=== PATIENT | female | born 1965 | race Caucasian/White ===

== ENCOUNTER 2022-12-24 16:44 | Inpatient (IN) | payer OTHER, SELFPAY ==
--- NOTE | ~2022-12-24 | XR_ITS ---
EXAMINATION: XR CHEST CLINICAL INFORMATION: Chronic shortness of breath. COMPARISON: None available. TECHNIQUE: 2 views of the chest were obtained. FINDINGS: No significant abnormality is noted involving the heart, lungs, mediastinum, bony thorax or soft tissues. XR/XR chest 2V IMPRESSION: No acute cardiopulmonary process.
--- NOTE | 2022-12-24 16:50 | ED_ITS ---
HPI - Psych General Chief Complaint: Psychiatric Symptoms <KAITLIN Escobedo Last Filed: 12/24/22 19:58> Stated Complaint: SI W/PLAN,SECTION 12 <KAITLIN Escobedo Last Filed: 12/24/22 19:58> Time Seen by Provider: 12/24/22 17:05 <KAITLIN Escobedo Last Filed: 12/24/22 19:58> Source: patient <KAITLIN Escobedo Last Filed: 12/24/22 19:58> Mode of arrival: ambulatory <KAITLIN Escobedo Last Filed: 12/24/22 19:58> Limitations: no limitations <KAITLIN Escobdeo Last Filed: 12/24/22 19:58> History of Present Illness HPI Narrative: This is a 57-year-old female history of anxiety, depression presenting to the emergency department for evaluation of suicidal ideation with plan times a few days. Patient reports she wanted to go to for spark underneath because the bow, drink a lot of alcohol and pills and , she says last time she tried to kill herself at home she had to get CPR from her sister so she did not want this to happen. Recently released from an inpatient psychiatric unit in mid October. Denies visual, auditory and tactile hallucinations. Denies drugs, alcohol and tobacco. No medical complain. Med compliant per patient. <KAITLIN Escobedo Last Filed: 12/24/22 19:58> Related Data Home Medications: Home Medications Medication Instructions Recorded Confirmed amlodipine 5 mg tablet 5 mg PO DAILY 12/24/22 12/24/22 clonazepam 1 mg tablet 1 mg PO TID PRN Anxiety 12/24/22 12/24/22 clonidine HCl 0.1 mg tablet 0.1 mg PO TID 12/24/22 12/24/22 fluoxetine 20 mg capsule 20 mg PO DAILY 12/24/22 12/24/22 prazosin 5 mg capsule 5 mg PO BEDTIME 12/24/22 12/24/22 quetiapine 400 mg tablet 400 mg PO BEDTIME 12/24/22 12/24/22 <KAITLIN Escobedo Last Filed: 12/24/22 19:58> Allergies/Adverse Reactions: Allergies Allergy/AdvReac Type Severity Reaction Status Date / Time No Known Allergies Allergy Verified 12/24/22 23:16 <KAITLIN Escobedo Last Filed: 12/24/22 19:58> Review of Systems Review of Systems: Constitutional : No Fever, No Chills ENT/Mouth : No Ear Pain, No Nasal Congestion, No sore throat Eyes: No Eye Pain, No Swelling, No Redness Cardiovascular : No Chest Pain, No SOB Respiratory : No Cough, No Sputum, No Dyspnea Gastrointestinal : No Nausea, No Vomiting, No Diarrhea, No Hematochezia, No Melena Genitourinary : No Dysuria, No Urinary Frequency, No Hematuria Musculoskeletal : No Myalgias Skin : No Skin Lesions, No rash Neuro : No Weakness, No Numbness, No Paresthesias, No Dizziness, No Headache Psych : positive Anxiety, positive Depression, positive SI, No HI All other systems reviewed and are negative <KAITLIN Escobedo Last Filed: 12/24/22 19:58> Yes all other systems are reviewed and are negative <KAITLIN Escobeod Last Filed: 12/24/22 19:58> PMF Past Medical History Attestation statement: The following information was validated with the patient. <KAITLIN Escobedo Last Filed: 12/24/22 19:58> Source: old records reviewed and nursing notes reviewed <KAITLIN Escobedo Last Filed: 12/24/22 19:58> Social History Social History: Social History Alcohol intake: former Smoked in Last 30 Days: Yes Use of substances other than those prescribed or required for medical reasons: No Advance Directives: No Advance Directives Information Provided: No Patient : No <KAITLIN Escobedo Last Filed: 12/24/22 19:58> Physical Exam Vital Signs: Vital Signs: Last Vital Signs Temp 97.9 F 12/25/22 00:18 Pulse 62 12/25/22 00:18 Resp 16 12/25/22 00:18 BP 177/74 H 12/25/22 00:18 Pulse Ox 92 12/25/22 00:18 O2 Del Method Room Air 12/25/22 00:18 BMI result Body Mass Index 33.4 vss <KAITLIN Escobedo - Last Filed: 12/24/22 19:58> Vital Signs: Last Vital Signs Temp 97.9 F 12/25/22 00:18 Pulse 62 12/25/22 00:18 Resp 16 12/25/22 00:18 BP 177/74 H 12/25/22 00:18 Pulse Ox 92 12/25/22 00:18 O2 Del Method Room Air 12/25/22 00:18 BMI result Body Mass Index 33.4 <Elias Pierson MD - Last Filed: 12/25/22 08:14> Appearance: Alert.? Oriented X3.? No acute distress.? Head: Normocephalic, atraumatic, no step-offs or deformities Eyes: Pupils equal, round and reactive to light.? Neck: Normal inspection.? Neck supple.? CVS: Normal heart rate and rhythm.? Pulses normal.? Respiratory: No respiratory distress.? Breath sounds normal.? Abdomen: Soft and nontender.? Skin: Skin warm and dry.? Normal skin color.? Normal skin turgor.? Extremities: No lower extremity edema.? No calf ttp. 5/5 strength to bilateral upper and lower extremities Neuro: Oriented X 3.? No motor deficit.? No sensory deficit. CN 2-12 intact <KAITLIN Escobedo - Last Filed: 12/24/22 19:58> Course Reevaluation(s) Reevaluation #1: CBC within normal limits. Chemistry with slightly elevated BUN however patient tolerating p.o. nose clinical signs of dehydration. No other acute electrolyte abnormalities requiring intervention. UA without infection. Salicylates, acetaminophen and ethanol negative. COVID negative. At this time patient will be placed into observation to allow more time to be evaluated by the behavioral health team. At time observation was started kaitlin holcomb cooperative no acute distress will continue to monitor. <KAITLIN Escobedo - Last Filed: 12/24/22 19:58> Time: 18:46 <KAITLIN Escobedo - Last Filed: 12/24/22 19:58> Reevaluation #2: pt is stble ,no event overnight on section 12 bed search continue <Elias Pierson MD - Last Filed: 12/25/22 08:14> Time: 08:12 <Elias Pierson MD - Last Filed: 12/25/22 08:14> Medications Administered Generic Name Dose Route Start Last Admin Trade Name Freq PRN Reason Stop Dose Admin Clonazepam 1 mg 12/25/22 00:40 12/25/22 00:57 Clonazepam 1 Mg Tablet PO 1 mg TID PRN Administration Anxiety Clonidine HCl 0.1 mg 12/25/22 00:45 12/25/22 00:57 Clonidine Hcl 0.1 Mg Tablet PO 0.1 mg TID LILIAM Administration Protocol Prazosin HCl 5 mg 12/25/22 00:45 12/25/22 00:57 Prazosin Hcl 5 Mg Capsule PO 5 mg BEDTIME LILIAM Administration Protocol Quetiapine Fumarate 400 mg 12/25/22 00:45 12/25/22 00:57 Quetiapine Fumarate 400 Mg Tablet PO 400 mg BEDTIME LILIAM Administration <KAITLIN Escobedo - Last Filed: 12/24/22 19:58> Medications Administered Generic Name Dose Route Start Last Admin Trade Name Freq PRN Reason Stop Dose Admin Clonazepam 1 mg 12/25/22 00:40 12/25/22 00:57 Clonazepam 1 Mg Tablet PO 1 mg TID PRN Administration Anxiety Clonidine HCl 0.1 mg 12/25/22 00:45 12/25/22 00:57 Clonidine Hcl 0.1 Mg Tablet PO 0.1 mg TID LILIAM Administration Protocol Prazosin HCl 5 mg 12/25/22 00:45 12/25/22 00:57 Prazosin Hcl 5 Mg Capsule PO 5 mg BEDTIME LILIAM Administration Protocol Quetiapine Fumarate 400 mg 12/25/22 00:45 12/25/22 00:57 Quetiapine Fumarate 400 Mg Tablet PO 400 mg BEDTIME LILIAM Administration <Elias Pierson MD - Last Filed: 12/25/22 08:14> Medical Decision Making Medical Decision Making MDM Narrative: 1654 57 year old female presents with suicidal ideation with plan for few days. Physical exam benign Likely anxiety, depression. Other differentials include schizophrenia, bipolar disorder. Plan medical clearance evaluation by the behavioral health team. <KAITLIN Escobedo Last Filed: 12/24/22 19:58> Differential Diagnosis Differential Diagnoses: The differential diagnosis associated with the presentation includes <KAITLIN Escobedo - Last Filed: 12/24/22 19:58> Likely anxiety, depression. Other differentials include schizophrenia, bipolar disorder. <KAITLIN Escobedo - Last Filed: 12/24/22 19:58> Admission/Observation Consideration of admission/observation: Escalation of care including admission/observation considered <KAITLIN Escobedo - Last Filed: 12/24/22 19:58> Lab Data MDM Lab Attestation statement: I reviewed the patient's lab results. <KAITLIN Escobedo - Last Filed: 12/24/22 19:58> Result Diagrams: 12/24/22 17:46 12/24/22 17:46 <KAITLIN Escobedo - Last Filed: 12/24/22 19:58> Labs: Lab Results 12/24/22 12/24/22 12/24/22 Range/Units 17:46 17:46 17:46 WBC 8.9 (4.8-10.8) X10*3/uL RBC 4.78 (4.20-5.50) X10*6/uL Hgb 13.2 (12.0-16.0) g/dl Hct 41.5 (37.0-47.0) % MCV 86.8 (80.0-98.0) fL MCH 27.6 (27.0-33.0) pg MCHC 31.8 (31.0-35.0) g/dl RDW 13.2 (11.0-16.0) % Plt Count 219 (160-400) X10*3/uL MPV 10.6 (9.4-12.3) fL Immature Gran % (Auto) 0.2 (0.0-0.4) % Neut % (Auto) 53.6 (45-73) % Lymph % (Auto) 39.4 (20-40) % [place] % (Auto) 5.0 (2-11) % Eos % (Auto) 1.5 (0-4) % Baso % (Auto) 0.3 (0-2) % Lymph # (Auto) 3.5 (1.2-4.9) X10*3/uL [place] # (Auto) 0.4 (0.1-1.2) X10*3/uL Eos # (Auto) 0.1 (0.0-0.4) X10*3/uL Baso # (Auto) 0.0 (0.0-0.2) X10*3/uL Abs Immat Gran (auto) 0.02 (0.00-0.03) X10*3/uL Absolute Neuts (auto) 4.8 (2.0-8.3) x10*3/uL Absolute Nucleated RBC 0.000 (0.0-0.012) X10*3/uL Nucleated RBC % (auto) 0.0 (0.0-0.2) /100WBC Sodium 140 (135-145) mmol/L Potassium 4.3 (3.3-5.1) mmol/L Chloride 101 (96-108) mmol/L Carbon Dioxide 32 H (22-29) mmol/L Anion Gap 11 L (12-20) BUN 18 H (9-16) mg/dL Creatinine 0.94 (0.5-1.4) mg/dL Estim Creat Clear Calc 79.6 Estimated GFR > 60 Random Glucose 96 (60-115) mg/dL Calcium 9.1 (8.4-10.2) mg/dL Magnesium 2.1 (1.6-2.6) mg/dL Total Bilirubin 0.3 (0.0-1.0) mg/dL AST 20 (5-31) U/L ALT 21 (0-31) U/L Alkaline Phosphatase 80 (39-117) U/L Total Protein 6.8 (6.5-8.0) g/dL Albumin 4.0 (3.5-5.0) g/dL Lipase 11 (8-78) U/L Urine Color Urine Appearance Urine pH (5.0-9.0) Ur Specific [place] (1.005-1.025) Urine Protein (Neg-Trace) mg/dL Urine Glucose (UA) (Negative) mg/dL Urine Ketones (Negative) mg/dL Urine Blood (Negative) Urine Nitrite (Negative) Ur Leukocyte Esterase (Negative) Urine RBC (0-2) /HPF Urine WBC (0-5) /HPF Ur Squamous Epith Cells (0-2) /HPF Urine Bacteria (None Seen) Hyaline Casts (0-2) /LPF Salicylates < 5.0 L (15-30) mg/dL Urine Opiates Screen (Not Detect) Urine Fentanyl Screen (Not Detect) Acetaminophen < 17 (<30) mcg/mL Ur Barbiturates Screen (Not Detect) Ur Phencyclidine Scrn (Not Detect) Ur Amphetamines Screen (Not Detect) U Benzodiazepines Scrn (Not Detect) Urine Cocaine Screen (Not Detect) U Marijuana (THC) Screen (Not Detect) Ethyl Alcohol < 10 mg/dL COVID-19 ([facility]) Negative (Negative) COVID-19 Clin Com See Note 12/24/22 12/24/22 Range/Units 17:46 17:46 WBC (4.8-10.8) X10*3/uL RBC (4.20-5.50) X10*6/uL Hgb (12.0-16.0) g/dl Hct (37.0-47.0) % MCV (80.0-98.0) fL MCH (27.0-33.0) pg MCHC (31.0-35.0) g/dl RDW (11.0-16.0) % Plt Count (160-400) X10*3/uL MPV (9.4-12.3) fL Immature Gran % (Auto) (0.0-0.4) % Neut % (Auto) (45-73) % Lymph % (Auto) (20-40) % [place] % (Auto) (2-11) % Eos % (Auto) (0-4) % Baso % (Auto) (0-2) % Lymph # (Auto) (1.2-4.9) X10*3/uL [place] # (Auto) (0.1-1.2) X10*3/uL Eos # (Auto) (0.0-0.4) X10*3/uL Baso # (Auto) (0.0-0.2) X10*3/uL Abs Immat Gran (auto) (0.00-0.03) X10*3/uL Absolute Neuts (auto) (2.0-8.3) x10*3/uL Absolute Nucleated RBC (0.0-0.012) X10*3/uL Nucleated RBC % (auto) (0.0-0.2) /100WBC Sodium (135-145) mmol/L Potassium (3.3-5.1) mmol/L Chloride (96-108) mmol/L Carbon Dioxide (22-29) mmol/L Anion Gap (12-20) BUN (9-16) mg/dL Creatinine (0.5-1.4) mg/dL Estim Creat Clear Calc Estimated GFR Random Glucose (60-115) mg/dL Calcium (8.4-10.2) mg/dL Magnesium (1.6-2.6) mg/dL Total Bilirubin (0.0-1.0) mg/dL AST (5-31) U/L ALT (0-31) U/L Alkaline Phosphatase (39-117) U/L Total Protein (6.5-8.0) g/dL Albumin (3.5-5.0) g/dL Lipase (8-78) U/L Urine Color Dark Yellow Urine Appearance Clear Urine pH 6.0 (5.0-9.0) Ur Specific [place] 1.025 (1.005-1.025) Urine Protein Trace (Neg-Trace) mg/dL Urine Glucose (UA) Negative (Negative) mg/dL Urine Ketones Trace (Negative) mg/dL Urine Blood Negative (Negative) Urine Nitrite Negative (Negative) Ur Leukocyte Esterase Small (1+) H (Negative) Urine RBC 0-2 (0-2) /HPF Urine WBC 11-20 H (0-5) /HPF Ur Squamous Epith Cells 3-5 (0-2) /HPF Urine Bacteria None Seen (None Seen) Hyaline Casts 0-2 (0-2) /LPF Salicylates (15-30) mg/dL Urine Opiates Screen Not Detected (Not Detect) Urine Fentanyl Screen Not Detected (Not Detect) Acetaminophen (<30) mcg/mL Ur Barbiturates Screen Not Detected (Not Detect) Ur Phencyclidine Scrn Not Detected (Not Detect) Ur Amphetamines Screen Not Detected (Not Detect) U Benzodiazepines Scrn POSITIVE H (Not Detect) Urine Cocaine Screen Not Detected (Not Detect) U Marijuana (THC) Screen Not Detected (Not Detect) Ethyl Alcohol mg/dL COVID-19 ([facility]) (Negative) COVID-19 Clin Com <KAITLIN Escobedo - Last Filed: 12/24/22 19:58> Lab Results 12/24/22 12/24/22 12/24/22 Range/Units 17:46 17:46 17:46 WBC 8.9 (4.8-10.8) X10*3/uL RBC 4.78 (4.20-5.50) X10*6/uL Hgb 13.2 (12.0-16.0) g/dl Hct 41.5 (37.0-47.0) % MCV 86.8 (80.0-98.0) fL MCH 27.6 (27.0-33.0) pg MCHC 31.8 (31.0-35.0) g/dl RDW 13.2 (11.0-16.0) % Plt Count 219 (160-400) X10*3/uL MPV 10.6 (9.4-12.3) fL Immature Gran % (Auto) 0.2 (0.0-0.4) % Neut % (Auto) 53.6 (45-73) % Lymph % (Auto) 39.4 (20-40) % [place] % (Auto) 5.0 (2-11) % Eos % (Auto) 1.5 (0-4) % Baso % (Auto) 0.3 (0-2) % Lymph # (Auto) 3.5 (1.2-4.9) X10*3/uL [place] # (Auto) 0.4 (0.1-1.2) X10*3/uL Eos # (Auto) 0.1 (0.0-0.4) X10*3/uL Baso # (Auto) 0.0 (0.0-0.2) X10*3/uL Abs Immat Gran (auto) 0.02 (0.00-0.03) X10*3/uL Absolute Neuts (auto) 4.8 (2.0-8.3) x10*3/uL Absolute Nucleated RBC 0.000 (0.0-0.012) X10*3/uL Nucleated RBC % (auto) 0.0 (0.0-0.2) /100WBC Sodium 140 (135-145) mmol/L Potassium 4.3 (3.3-5.1) mmol/L Chloride 101 (96-108) mmol/L Carbon Dioxide 32 H (22-29) mmol/L Anion Gap 11 L (12-20) BUN 18 H (9-16) mg/dL Creatinine 0.94 (0.5-1.4) mg/dL Estim Creat Clear Calc 79.6 Estimated GFR > 60 Random Glucose 96 (60-115) mg/dL Calcium 9.1 (8.4-10.2) mg/dL Magnesium 2.1 (1.6-2.6) mg/dL Total Bilirubin 0.3 (0.0-1.0) mg/dL AST 20 (5-31) U/L ALT 21 (0-31) U/L Alkaline Phosphatase 80 (39-117) U/L Total Protein 6.8 (6.5-8.0) g/dL Albumin 4.0 (3.5-5.0) g/dL Lipase 11 (8-78) U/L Urine Color Urine Appearance Urine pH (5.0-9.0) Ur Specific [place] (1.005-1.025) Urine Protein (Neg-Trace) mg/dL Urine Glucose (UA) (Negative) mg/dL Urine Ketones (Negative) mg/dL Urine Blood (Negative) Urine Nitrite (Negative) Ur Leukocyte Esterase (Negative) Urine RBC (0-2) /HPF Urine WBC (0-5) /HPF Ur Squamous Epith Cells (0-2) /HPF Urine Bacteria (None Seen) Hyaline Casts (0-2) /LPF Salicylates < 5.0 L (15-30) mg/dL Urine Opiates Screen (Not Detect) Urine Fentanyl Screen (Not Detect) Acetaminophen < 17 (<30) mcg/mL Ur Barbiturates Screen (Not Detect) Ur Phencyclidine Scrn (Not Detect) Ur Amphetamines Screen (Not Detect) U Benzodiazepines Scrn (Not Detect) Urine Cocaine Screen (Not Detect) U Marijuana (THC) Screen (Not Detect) Ethyl Alcohol < 10 mg/dL COVID-19 ([facility]) Negative (Negative) COVID-19 Clin Com See Note 12/24/22 12/24/22 Range/Units 17:46 17:46 WBC (4.8-10.8) X10*3/uL RBC (4.20-5.50) X10*6/uL Hgb (12.0-16.0) g/dl Hct (37.0-47.0) % MCV (80.0-98.0) fL MCH (27.0-33.0) pg MCHC (31.0-35.0) g/dl RDW (11.0-16.0) % Plt Count (160-400) X10*3/uL MPV (9.4-12.3) fL Immature Gran % (Auto) (0.0-0.4) % Neut % (Auto) (45-73) % Lymph % (Auto) (20-40) % [place] % (Auto) (2-11) % Eos % (Auto) (0-4) % Baso % (Auto) (0-2) % Lymph # (Auto) (1.2-4.9) X10*3/uL [place] # (Auto) (0.1-1.2) X10*3/uL Eos # (Auto) (0.0-0.4) X10*3/uL Baso # (Auto) (0.0-0.2) X10*3/uL Abs Immat Gran (auto) (0.00-0.03) X10*3/uL Absolute Neuts (auto) (2.0-8.3) x10*3/uL Absolute Nucleated RBC (0.0-0.012) X10*3/uL Nucleated RBC % (auto) (0.0-0.2) /100WBC Sodium (135-145) mmol/L Potassium (3.3-5.1) mmol/L Chloride (96-108) mmol/L Carbon Dioxide (22-29) mmol/L Anion Gap (12-20) BUN (9-16) mg/dL Creatinine (0.5-1.4) mg/dL Estim Creat Clear Calc Estimated GFR Random Glucose (60-115) mg/dL Calcium (8.4-10.2) mg/dL Magnesium (1.6-2.6) mg/dL Total Bilirubin (0.0-1.0) mg/dL AST (5-31) U/L ALT (0-31) U/L Alkaline Phosphatase (39-117) U/L Total Protein (6.5-8.0) g/dL Albumin (3.5-5.0) g/dL Lipase (8-78) U/L Urine Color Dark Yellow Urine Appearance Clear Urine pH 6.0 (5.0-9.0) Ur Specific [place] 1.025 (1.005-1.025) Urine Protein Trace (Neg-Trace) mg/dL Urine Glucose (UA) Negative (Negative) mg/dL Urine Ketones Trace (Negative) mg/dL Urine Blood Negative (Negative) Urine Nitrite Negative (Negative) Ur Leukocyte Esterase Small (1+) H (Negative) Urine RBC 0-2 (0-2) /HPF Urine WBC 11-20 H (0-5) /HPF Ur Squamous Epith Cells 3-5 (0-2) /HPF Urine Bacteria None Seen (None Seen) Hyaline Casts 0-2 (0-2) /LPF Salicylates (15-30) mg/dL Urine Opiates Screen Not Detected (Not Detect) Urine Fentanyl Screen Not Detected (Not Detect) Acetaminophen (<30) mcg/mL Ur Barbiturates Screen Not Detected (Not Detect) Ur Phencyclidine Scrn Not Detected (Not Detect) Ur Amphetamines Screen Not Detected (Not Detect) U Benzodiazepines Scrn POSITIVE H (Not Detect) Urine Cocaine Screen Not Detected (Not Detect) U Marijuana (THC) Screen Not Detected (Not Detect) Ethyl Alcohol mg/dL COVID-19 ([facility]) (Negative) COVID-19 Clin Com <Elias Pierson MD - Last Filed: 12/25/22 08:14> Core Measures AMI core measures followed: Yes <KAITLIN Escobedo - Last Filed: 12/24/22 19:58> Measure exclusions: not indicated <KAITLIN Escobedo - Last Filed: 12/24/22 19:58> Critical Care Time Critical Care Time Critical Care Time: No <KAITLIN Escobedo - Last Filed: 12/24/22 19:58> Discharge Plan Discharge Clinical Impression: Depression, Suicidal ideation <KAITLIN Escobedo - Last Filed: 12/24/22 19:58> Patient Disposition: Still a Patient <KAITLIN Escobedo - Last Filed: 12/24/22 19:58> Instructions: Depression (ED), Help Prevent Suicide (ED) <KAITLIN Escobedo - Last Filed: 12/24/22 19:58> Prescriptions: No Action clonidine HCl 0.1 mg tablet 0.1 mg PO TID clonazepam 1 mg tablet 1 mg PO TID PRN (Reason: Anxiety) amlodipine 5 mg tablet 5 mg PO DAILY prazosin 5 mg capsule 5 mg PO BEDTIME fluoxetine 20 mg capsule 20 mg PO DAILY quetiapine 400 mg tablet 400 mg PO BEDTIME <KAITLIN Escobedo - Last Filed: 12/24/22 19:58> Interventions: [place]-Suicide Risk Severity Scale Last Done: 12/25/22 06:36 <KAITLIN Escobedo - Last Filed: 12/24/22 19:58>
[2022-12-24 17:06] VITALS: BP 164/90; PULSE 63; O2SAT 91; BMI 33.4
[2022-12-24 17:18] VITALS: BP 167/74; PULSE 64; RESP 18; TEMP 36.3; O2SAT 94
[2022-12-24 17:51] LABS: MANUAL DIFF FLAG NO
[2022-12-24 17:54] LABS: Basophils Percent Auto 0.3 % (0-2); Eosinophils Absolute Auto 0.1 X10*3/uL (0.0-0.4); Eosinophils Percent Auto 1.5 % (0-4); Hematocrit 41.5 % (37.0-47.0); Hemoglobin 13.2 g/dl (12.0-16.0); Imm Gran Abs Auto 0.02 X10*3/uL (0.00-0.03); Imm Gran Pct Auto 0.2 % (0.0-0.4); Lymphocytes Absolute Auto 3.5 X10*3/uL (1.2-4.9); Lymphocytes Percent Auto 39.4 % (20-40); Mean Corpuscular HGB Conc 31.8 g/dl (31.0-35.0); Mean Corpuscular Hemoglobin 27.6 pg (27.0-33.0); Mean Corpuscular Volume 86.8 fL (80.0-98.0); Mean Platelet Volume 10.6 fL (9.4-12.3); Monocytes Absolute Auto 0.4 X10*3/uL (0.1-1.2); Neutrophils Absolute Auto 4.8 x10*3/uL (2.0-8.3); Neutrophils Percent Auto 53.6 % (45-73); Platelet Count 219 X10*3/uL (160-400); Red Blood Count 4.78 X10*6/uL (4.20-5.50); Red Cell Distribution Width 13.2 % (11.0-16.0); White Blood Count 8.9 X10*3/uL (4.8-10.8)
[2022-12-24 17:56] LABS: Appearance Urine Clear; Color Urine Dark Yellow; Glucose Urine UA Negative (Negative); Leukocyte Esterase Urine Small (1+) (Negative); Nitrite Urine Negative (Negative); Specific Gravity - Urine 1.025 (1.005-1.025); UMIC TRIGGER UACC YES; Urine Blood Negative (Negative); Urine Ketones Trace mg/dL (Negative); Urine Protein Trace mg/dL (Neg-Trace)
[2022-12-24 17:59] LABS: Bacteria Urine None Seen (None Seen); Hyaline Casts Urine 0-2 /LPF (0-2); RBC Urine 0-2 /HPF (0-2); UACC Culture Trigger YES
[2022-12-24 18:08] LABS: COVID-19 Test Negative (Negative); IDNOW Serial# 08D9AD1C
[2022-12-24 18:27] LABS: Alanine Aminotransferase 21 U/L (0-31); Alkaline Phosphatase 80 U/L (39-117); Anion Gap 11 (12-20); Aspartate Amino Transferase 20 U/L (5-31); Bilirubin Total 0.3 mg/dL (0.0-1.0); Blood Urea Nitrogen 18 mg/dL (9-16); Calcium 9.1 mg/dL (8.4-10.2); Carbon Dioxide 32 mmol/L (22-29); Chloride 101 mmol/L (96-108); Creatinine Clr Calc Pharmacy 79.6; Estimated Glomerular Filt Rate > 60; Ethanol < 10 mg/dL; Glucose Random 96 mg/dL (60-115); Lipase 11 U/L (8-78); Magnesium 2.1 mg/dL (1.6-2.6); Potassium 4.3 mmol/L (3.3-5.1); Salicylate < 5.0 mg/dL (15-30); Sodium 140 mmol/L (135-145); Total Protein 6.8 g/dL (6.5-8.0)
[2022-12-24 18:31] LABS: Acetaminophen LAB < 17 mcg/mL (<30)
[2022-12-24 19:41] VITALS: BP 138/89; PULSE 88; RESP 14; TEMP 36.7; O2SAT 99
--- NOTE | 2022-12-24 19:57 | PC.NURSE ---
med rec completed with patient verification pt provided with [place] jose and is now resting comfortably in no apparent distress, respirations even and unlabored
[2022-12-24 23:43] LABS: Amphetamine Screen Urine Not Detected (Not Detect); Barbiturates, Urine Not Detected (Not Detect); Benzodiazepines Screen Urine POSITIVE (Not Detect); Cannabinoid Screen Urine Not Detected (Not Detect); Cocaine Screen Urine Not Detected (Not Detect); Fentanyl, urine Not Detected (Not Detect); Opiate Screen Urine Not Detected (Not Detect); Phencyclidine Screen Urine Not Detected (Not Detect)
[2022-12-25 00:18] VITALS: BP 177/74; PULSE 62; RESP 16; TEMP 36.6; O2SAT 92
[2022-12-25] MEDS: cloNIDine HCL 0.1 MG TABLET PO ×4 (00:57→22:03)
[2022-12-25] MEDS: QUEtiapine Fumarate 400 MG TABLET PO ×2 (00:57→22:02)
[2022-12-25] MEDS: Prazosin HCL 5 MG CAPSULE PO ×2 (00:57→22:05)
[2022-12-25] MEDS: clonazePAM 1 MG TABLET PO ×4 (00:57→22:48)
--- NOTE | 2022-12-25 06:45 | PC.NURSE ---
Patient slept through the night, no distress observed/reported, medication compliant, behavior non concerning, disposition per [facility] is section 12 inpatient bed search, labs completed/resulted, will continue to monitor.
--- NOTE | 2022-12-25 07:17 | ECG_ITS ---
Test Reason : check prolong QT Blood Pressure : / mmHG Vent. Rate : 058 BPM Atrial Rate : 058 BPM P-R Int : 150 ms QRS Dur : 088 ms QT Int : 498 ms P-R-T Axes : 036 023 032 degrees QTc Int : 488 ms Sinus bradycardia with sinus arrhythmia Prolonged QT Abnormal ECG No previous ECGs available Referred By: Kun Xavier Electronically Signed By:PARTH NGUYEN MD
--- NOTE | 2022-12-25 07:40 | PC.NURSE ---
Pt resting quietly at this time, resp reg and even, NAD. Plan to perform EKG when pt awakens, if not awake by 9a, staff will wake to obtain. Sect 12 bedsearch continues.
--- NOTE | 2022-12-25 08:51 | PC.NURSE ---
Methadone does verified. [facility] in [place], this RN spoke with Celina AGUERO who verified pt takes 116mg and was last dosed 12/24/22 at 627 am.
[2022-12-25 08:55] VITALS: BP 151/88; PULSE 66; RESP 15; TEMP 36.2; O2SAT 90
[2022-12-25] MEDS: amLODIPine Besylate 5 MG TABLET PO (09:00)
[2022-12-25] MEDS: FLUoxetine HCl 20 MG CAPSULE PO (09:00)
--- NOTE | 2022-12-25 09:00 | HE.PHANOTE ---
re methadone Patient gets methadone from [facility]. Dose is 116 mg, last received 12/24/22 Max
[2022-12-25 09:07] VITALS: RESP 15
--- NOTE | 2022-12-25 09:17 | PC.NURSE ---
Pt sat 88-90% on room air, no s/sx of resp distress. Pt reports she is a smoker and has had increasing SOB for awhile now denies any acute changes, MD notified. Awaiting further instructions.
[2022-12-25] MEDS: methADONE HCl 20 MG/2 ML ORAL.CONC 115 MG PO (09:51)
--- NOTE | 2022-12-25 09:56 | MHC.CARE ---
patient seen for MSU by Care team, she is an inpatient bed search. Patient is voluntary.
--- NOTE | 2022-12-25 10:12 | PC.NURSE ---
Pt back from x-ray, awaiting results. Medicated with Methadone per NOV.
--- NOTE | 2022-12-25 16:02 | PC.NURSE ---
report has been given to m3 and pt is awaiting transport pt remains calpm and cooperative, interacting appropriatly with staff.
[2022-12-25 16:20] VITALS: BP 111/89; PULSE 54; RESP 16; TEMP 36.1; O2SAT 97
[2022-12-25 17:33] VITALS: BP 127/72; PULSE 55; RESP 18; TEMP 36.6; O2SAT 94
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
[2022-12-25 22:00] VITALS: BP 117/54; PULSE 52; RESP 16; TEMP 36.7; O2SAT 94
--- NOTE | 2022-12-26 | ECG_ITS ---
Test Reason : ECT Blood Pressure : / mmHG Vent. Rate : 045 BPM Atrial Rate : 045 BPM P-R Int : 158 ms QRS Dur : 086 ms QT Int : 546 ms P-R-T Axes : 030 044 050 degrees QTc Int : 472 ms Sinus bradycardia Otherwise normal ECG When compared with ECG of 25-DEC-2022 09:08, No significant change was found Referred By: En Trujillo Electronically Signed By:Gary Ruiz
[2022-12-26] MEDS: Phenazopyridine HCL 100 MG TABLET PO ×2 (08:17→16:18)
[2022-12-26] MEDS: cloNIDine HCL 0.1 MG TABLET PO ×2 (08:18→22:47)
[2022-12-26] MEDS: methADONE HCl 20 MG/2 ML ORAL.CONC 115 MG PO (08:18)
[2022-12-26] MEDS: FLUoxetine HCl 20 MG CAPSULE PO (08:18)
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
[2022-12-26 09:06] LABS: Estimated Average Glucose 134 mg/dL; Hemoglobin A1c % 6.3 %
[2022-12-26] MEDS: amLODIPine Besylate 5 MG TABLET PO (09:11)
[2022-12-26 09:12] VITALS: BP 107/61; PULSE 58; RESP 18; TEMP 36.3; O2SAT 96
[2022-12-26 09:22] LABS: Alanine Aminotransferase 22 U/L (0-31); Albumin Level 3.5 g/dL (3.5-5.0); Alkaline Phosphatase 75 U/L (39-117); Anion Gap 14 (12-20); Aspartate Amino Transferase 20 U/L (5-31); Bilirubin Total 0.3 mg/dL (0.0-1.0); Blood Urea Nitrogen 18 mg/dL (9-16); Calcium 8.9 mg/dL (8.4-10.2); Carbon Dioxide 31 mmol/L (22-29); Chloride 101 mmol/L (96-108); Cholesterol 218 mg/dL; Creatinine Clr Calc Pharmacy 91.2; Estimated Glomerular Filt Rate > 60; Glucose Fasting 99 mg/dL (60-99); HDL Cholesterol 29 mg/dL; LDL Cholesterol Calculated 150 mg/dl; Potassium 4.5 mmol/L (3.3-5.1); Sodium 141 mmol/L (135-145); Total Protein 6.2 g/dL (6.5-8.0); Triglycerides 197 mg/dL
[2022-12-26 09:58] LABS: Folate 10.1 ng/mL (> or = 4.0); Thyroid Stimulating Hormone 1.86 uIU/mL (0.32-4.0); Vitamin B12 602 pg/mL (200-900)
[2022-12-26] MEDS: clonazePAM 1 MG TABLET PO ×2 (10:21→20:25)
[2022-12-26] MEDS: QUEtiapine Fumarate 400 MG TABLET PO (20:24)
[2022-12-26] MEDS: Prazosin HCL 5 MG CAPSULE PO (20:25)
[2022-12-26 20:30] VITALS: BP 125/60; PULSE 48; RESP 14; TEMP 36.2; O2SAT 94
[2022-12-26 22:41] VITALS: BP 115/60; PULSE 58; RESP 16; O2SAT 98
[2022-12-27 06:00] VITALS: BP 96/56; PULSE 57; RESP 16; TEMP 36.6; O2SAT 98
[2022-12-27] MEDS: FLUoxetine HCl 20 MG CAPSULE 60 MG PO (09:32)
[2022-12-27] MEDS: amLODIPine Besylate 5 MG TABLET PO (09:33)
[2022-12-27] MEDS: Phenazopyridine HCL 100 MG TABLET PO (09:33)
[2022-12-27] MEDS: cloNIDine HCL 0.1 MG TABLET PO ×3 (09:33→20:26)
[2022-12-27] MEDS: clonazePAM 1 MG TABLET PO ×2 (09:33→22:09)
[2022-12-27] MEDS: methADONE HCl 20 MG/2 ML ORAL.CONC 115 MG PO (10:04)
--- NOTE | 2022-12-27 10:34 | PC.NURSE ---
Pt. was seen by OT for administration of the MOCA. Pt. was found lying supine in bed under the covers and was wearing hospital attire. Pt. was agreeable to participating in assessment and sat up at the desk to complete it. Pt. scored a 25/30, indicating a mild cognitive impairment. Areas where the pt. struggled or scoring was on the border of receiving credit included the following: Visuospatial - cube was copied facing the wrong direction but pt. was given credit as all other aspects were drawn accurately. Contour and numbers on clock were correct but when drawing minute hand, pt. stated, no, the 2 would be 5 after, so I have to draw it pointing in between, and she sunday the minute hand between the 2 and 3. Attention - Stated 25034 instead of 10566. During serial 7s, pt. stated, 93, 86, 99, 92. I don't know, I'm just going to frustrate myself. Appeared to be calculating correctly but confusing the first number, as she stated [address] of [address] of 72. Abstraction - Struggled to articulate similarity between a watch and ruler. Stated, They both tell time. Well, they both give you information. Delayed Recall - Recalled 4/5 words but unable to recall face even after category and multiple choice cueing. Became flustered and confused with the MC cueing as she stated that none of the options were words she had heard previously, even though pt. had repeated all 5 words twice during the immediate recall. Orientation - Pt. missed the date by only 1 day so was given credit for all orientation items.
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
[2022-12-27 15:16] VITALS: BP 116/72
--- NOTE | 2022-12-27 16:50 | HO.PSYCHPN ---
Subjective Subjective Date of Service: 12/27/22 Reason For Visit: Si Medical Problems Affecting Mental Status: No Interim History: met with patient. Discussed with Nursing. Overall describes dysthymia, chronic SI. Reports feeling safe currently. Sleep okay. Reports however still feeling worthless and hopeless and lots of shame around suicide attempts and family having to perform CPR. Does however report feeling 40% better. Stable on methadone dosing. Did report that she had stopped her Prozac which may have contributed to her current presentation. Noted preoperative evaluation with potential for ECT. We did discuss medication review as part of her admission with a view to maximizing stability when discharged in community setting Medication Compliance: Yes Side effects from medications: No Attending Groups: Intermittent Review of Systems Acute medical concerns: No Review of Systems Review of Systems unremarkable Mental Status Exam Mental Status Exam Narrative: calm, cooperative. no PMA/PMR. adequately dressed and groomed. speech normal. with decr latency. thoughts generally linear and logical. affect constricted, normo-intense, non-labile. mood agitated. frustrated. denies SI/SIBI/HI/AVH at present. Diagnostics Vital Signs (24Hr): Vital Signs - 24 hr 12/26/22 20:30 12/26/22 22:41 12/27/22 06:00 Temperature 97.2 F 97.9 F Pulse Rate 48 L 58 57 Respiratory Rate 14 16 16 Blood Pressure 125/60 115/60 96/56 L Pulse Oximetry 94 98 98 Oxygen Delivery Method Room Air Room Air Room Air 12/27/22 15:16 Temperature Pulse Rate Respiratory Rate Blood Pressure 116/72 Pulse Oximetry Oxygen Delivery Method BMI result Body Mass Index 33.4 Labs 12/24/22 17:46 12/26/22 08:30 Labs: Laboratory Results - last 48 hr 12/26/22 12/26/22 08:30 08:30 Sodium 141 Potassium 4.5 Chloride 101 Carbon Dioxide 31 H Anion Gap 14 BUN 18 H Creatinine 0.82 Estim Creat Clear Calc 91.2 Estimated GFR > 60 Fasting Glucose 99 Estimat Average Glucose 134 Hemoglobin A1c % 6.3 Calcium 8.9 Total Bilirubin 0.3 AST 20 ALT 22 Alkaline Phosphatase 75 Total Protein 6.2 L Albumin 3.5 Triglycerides 197 Cholesterol 218 LDL Cholesterol, Calc 150 HDL Cholesterol 29 Vitamin B12 602 Folate 10.1 TSH 1.86 Imaging Radiology Impressions: ITS Impressions Chest X-Ray 12/25/22 10:01 IMPRESSION: No acute cardiopulmonary process. Medications Medications Current Medications Acetaminophen (Acetaminophen 325 Mg Tablet) 650 mg PO Q6H PRN PRN Reason: Headache/Pain Mild Scale (1-3) Al Hydroxide/Mg Hydroxide (Magnesium Hydrox/Alum Hydrox 30 Ml Oral.Susp) 30 ml PO Q6H PRN PRN Reason: Heartburn/Nausea Amlodipine Besylate (Amlodipine Besylate 5 Mg Tablet) 5 mg PO DAILY LILIAM; Protocol Last Admin: 12/27/22 09:33 Dose: 5 mg Clonazepam (Clonazepam 1 Mg Tablet) 1 mg PO TID PRN PRN Reason: Anxiety Last Admin: 12/27/22 09:33 Dose: 1 mg Clonidine HCl (Clonidine Hcl 0.1 Mg Tablet) 0.1 mg PO TID LILIAM; Protocol Last Admin: 12/27/22 15:31 Dose: 0.1 mg Fluoxetine HCl (Fluoxetine Hcl 20 Mg Capsule) 60 mg PO DAILY LILIAM Last Admin: 12/27/22 09:32 Dose: 60 mg Hydroxyzine HCl (Hydroxyzine Hcl 25 Mg Tablet) 25 mg PO Q6H PRN PRN Reason: Anxiety Magnesium Hydroxide (Milk Of Magnesia 30 Ml Oral.Susp) 30 ml PO DAILY PRN PRN Reason: Constipation Methadone HCl (Methadone Hcl 20 Mg/2 Ml Oral.Conc) 115 mg PO DAILY COUNTS INCLUDE 234 BEDS AT THE [facility] Phenazopyridine HCl (Phenazopyridine Hcl 100 Mg Tablet) 100 mg PO BIDWM LILIAM Stop: 12/27/22 17:01 Last Admin: 12/27/22 09:33 Dose: 100 mg Prazosin HCl (Prazosin Hcl 5 Mg Capsule) 5 mg PO BEDTIME LILIAM; Protocol Last Admin: 12/26/22 20:25 Dose: 5 mg Quetiapine Fumarate (Quetiapine Fumarate 400 Mg Tablet) 400 mg PO BEDTIME LILIAM Last Admin: 12/26/22 20:24 Dose: 400 mg Trazodone HCl (Trazodone Hcl 50 Mg Tablet) 50 mg PO BEDTIME PRN PRN Reason: Insomnia Allergies Allergies Allergy/AdvReac Type Severity Reaction Status Date / Time No Known Allergies Allergy Verified 12/24/22 23:16 Assessment & Plan Assessment & Plan (1) Pre-op evaluation: Status: Acute Code(s): Z01.818 - Encounter for other preprocedural examination (2) Major depressive disorder, recurrent: Status: Acute Code(s): F33.9 - Major depressive disorder, recurrent, unspecified Assessment and Plan: 12/27/2022: Noted primary team's preop evaluation for potential ECT. Plan Pt is a 57-year-old female with PMH patient significant for anxiety, depression, and polysubstance abuse who was admitted to psychiatry for worsening depression and SI with plan to overdose on her medications. Medical consult for ECT clearance. Pt has a history of SA with last attempt on 09/11/22. She has been researching TMS and ECT, and would like to proceed with ECT. At time of interview patient is very excited to begin her treatment. Pt denies a PMH of cerebral hemorrhage or stroke, CAD, space-occupying intracranial lesion, bleeding or otherwise unstable vascular aneurysm. No history of seizure, TBI, or severe pulmonary condition. Pt denies any past problems with anesthesiaPt. EKG negative for acute ischemia or prolonged QTc. Pt denies chest pain/pressure, palpitations, SOB, dizziness or lightheadedness. No abdominal pain, hematachezia, melena. There are no obvious contraindications to the planned procedure. Mood disorder Plan as per Psychiatry ECT There are no obvious medical contraindications to the planned procedure Thank you for allowing us to participate in the care of this patient. Signing off at this time. Please let us know if there are any acute complaints or questions. Reason for contiued inpatient stay Substantial Risk for: harm to self and inability to function Time Spent With Patient Time: Total time managing care of this patient today ____ minutes.
[2022-12-27 20:22] VITALS: BP 125/58; PULSE 50; RESP 14; TEMP 36.7; O2SAT 95
[2022-12-27] MEDS: Prazosin HCL 5 MG CAPSULE PO (20:26)
[2022-12-27] MEDS: QUEtiapine Fumarate 400 MG TABLET PO (20:26)
[2022-12-28 06:00] VITALS: BP 115/60; PULSE 51; RESP 16; TEMP 36.4; O2SAT 94
[2022-12-28] MEDS: FLUoxetine HCl 20 MG CAPSULE 60 MG PO (08:25)
[2022-12-28] MEDS: cloNIDine HCL 0.1 MG TABLET PO ×3 (08:25→20:54)
[2022-12-28] MEDS: amLODIPine Besylate 5 MG TABLET PO (08:25)
[2022-12-28] MEDS: methADONE HCl 20 MG/2 ML ORAL.CONC 115 MG PO (08:25)
--- NOTE | 2022-12-28 14:29 | HO.PSYCHPN ---
Subjective Subjective Date of Service: 12/28/22 Reason For Visit: Si Interim History: Overall ongoing dysthymia, chronic SI. Reports however still feeling worthless and hopeless and lots of shame. Reports feeling safe currently. Sleep okay. around suicide attempts and family having to perform CPR. Mood a little better. Discussed ECT and reports feeling open and hopeful ref same. Medication Compliance: Yes Side effects from medications: No Attending Groups: Intermittent Review of Systems Acute medical concerns: No Review of Systems Review of Systems unremarkable Yes all other systems are reviewed and are negative Mental Status Exam Mental Status Exam Narrative: calm, cooperative. no PMA/PMR. adequately dressed and groomed. speech normal. with decr latency. thoughts generally linear and logical. affect constricted, normo-intense, non-labile. mood agitated. frustrated. denies SI/SIBI/HI/AVH at present. Diagnostics Vital Signs (24Hr): Vital Signs - 24 hr 12/27/22 15:16 12/27/22 20:22 12/28/22 06:00 Temperature 98.1 F 97.6 F Pulse Rate 50 51 Respiratory Rate 14 16 Blood Pressure 116/72 125/58 L 115/60 Pulse Oximetry 95 94 Oxygen Delivery Method Room Air Room Air BMI result Body Mass Index 33.4 Labs 12/24/22 17:46 12/26/22 08:30 Imaging Radiology Impressions: ITS Impressions Chest X-Ray 12/25/22 10:01 IMPRESSION: No acute cardiopulmonary process. Medications Medications Current Medications Acetaminophen (Acetaminophen 325 Mg Tablet) 650 mg PO Q6H PRN PRN Reason: Headache/Pain Mild Scale (1-3) Al Hydroxide/Mg Hydroxide (Magnesium Hydrox/Alum Hydrox 30 Ml Oral.Susp) 30 ml PO Q6H PRN PRN Reason: Heartburn/Nausea Amlodipine Besylate (Amlodipine Besylate 5 Mg Tablet) 5 mg PO DAILY [facility]; Protocol Last Admin: 12/28/22 08:25 Dose: 5 mg Clonazepam (Clonazepam 1 Mg Tablet) 1 mg PO TID PRN PRN Reason: Anxiety Last Admin: 12/27/22 22:09 Dose: 1 mg Clonidine HCl (Clonidine Hcl 0.1 Mg Tablet) 0.1 mg PO TID [facility]; Protocol Last Admin: 12/28/22 08:25 Dose: 0.1 mg Fluoxetine HCl (Fluoxetine Hcl 20 Mg Capsule) 60 mg PO DAILY [facility] Last Admin: 12/28/22 08:25 Dose: 60 mg Hydroxyzine HCl (Hydroxyzine Hcl 25 Mg Tablet) 25 mg PO Q6H PRN PRN Reason: Anxiety Magnesium Hydroxide (Milk Of Magnesia 30 Ml Oral.Susp) 30 ml PO DAILY PRN PRN Reason: Constipation Methadone HCl (Methadone Hcl 20 Mg/2 Ml Oral.Conc) 115 mg PO DAILY [facility] Last Admin: 12/28/22 08:25 Dose: 115 mg Prazosin HCl (Prazosin Hcl 5 Mg Capsule) 5 mg PO BEDTIME [facility]; Protocol Last Admin: 12/27/22 20:26 Dose: 5 mg Quetiapine Fumarate (Quetiapine Fumarate 400 Mg Tablet) 400 mg PO BEDTIME [facility] Last Admin: 12/27/22 20:26 Dose: 400 mg Trazodone HCl (Trazodone Hcl 50 Mg Tablet) 50 mg PO BEDTIME PRN PRN Reason: Insomnia Allergies Allergies Allergy/AdvReac Type Severity Reaction Status Date / Time No Known Allergies Allergy Verified 12/24/22 23:16 Assessment & Plan Assessment & Plan (1) Pre-op evaluation: Status: Acute Code(s): Z01.818 - Encounter for other preprocedural examination (2) Major depressive disorder, recurrent: Status: Acute Code(s): F33.9 - Major depressive disorder, recurrent, unspecified Assessment and Plan: 12/28/2022: Noted primary team's preop evaluation for potential ECT. Pt open to same Plan Pt is a 57-year-old female with PMH patient significant for anxiety, depression, and polysubstance abuse who was admitted to psychiatry for worsening depression and SI with plan to overdose on her medications. Medical consult for ECT clearance. Pt has a history of SA with last attempt on 09/11/22. She has been researching TMS and ECT, and would like to proceed with ECT. At time of interview patient is very excited to begin her treatment. Pt denies a PMH of cerebral hemorrhage or stroke, CAD, space-occupying intracranial lesion, bleeding or otherwise unstable vascular aneurysm. No history of seizure, TBI, or severe pulmonary condition. Pt denies any past problems with anesthesiaPt. EKG negative for acute ischemia or prolonged QTc. Pt denies chest pain/pressure, palpitations, SOB, dizziness or lightheadedness. No abdominal pain, hematachezia, melena. There are no obvious contraindications to the planned procedure. Mood disorder Plan as per Psychiatry ECT There are no obvious medical contraindications to the planned procedure Thank you for allowing us to participate in the care of this patient. Signing off at this time. Please let us know if there are any acute complaints or questions. Reason for contiued inpatient stay Substantial Risk for: harm to self and inability to function Time Spent With Patient Time: Total time managing care of this patient today ____ minutes.
[2022-12-28] MEDS: clonazePAM 1 MG TABLET PO ×2 (15:01→20:54)
[2022-12-28 20:50] VITALS: BP 128/64; PULSE 50; RESP 20; TEMP 36.8; O2SAT 97
[2022-12-28] MEDS: QUEtiapine Fumarate 400 MG TABLET PO (20:54)
[2022-12-28] MEDS: Prazosin HCL 5 MG CAPSULE PO (20:54)
[2022-12-29 08:30] VITALS: BP 124/67; PULSE 103; RESP 18; TEMP 36.4; O2SAT 98
[2022-12-29] MEDS: methADONE HCl 20 MG/2 ML ORAL.CONC 115 MG PO (08:36)
[2022-12-29] MEDS: FLUoxetine HCl 20 MG CAPSULE 60 MG PO (08:37)
[2022-12-29] MEDS: cloNIDine HCL 0.1 MG TABLET PO ×3 (08:37→21:38)
[2022-12-29] MEDS: amLODIPine Besylate 5 MG TABLET PO (08:37)
[2022-12-29] MEDS: clonazePAM 1 MG TABLET PO ×2 (08:43→21:41)
--- NOTE | 2022-12-29 10:07 | ECG_ITS ---
Test Reason : PRE ECT Blood Pressure : / mmHG Vent. Rate : 046 BPM Atrial Rate : 046 BPM P-R Int : 154 ms QRS Dur : 094 ms QT Int : 530 ms P-R-T Axes : 051 038 047 degrees QTc Int : 463 ms Sinus bradycardia Otherwise normal ECG When compared with ECG of 26-DEC-2022 15:56, No significant change was found Referred By: En Trujillo Electronically Signed By:PARTH NGUYEN MD
--- NOTE | 2022-12-29 10:32 | PC.NURSE ---
EKG completed, sent to Dr. Trujillo via [facility].
--- NOTE | 2022-12-29 15:50 | P.PNPSI_ITS ---
Subjective Subjective Date of Service: 12/29/22 Reason For Visit: Si Interim History: calm, cooperative. flexible affect, states her mood is ok, but then also says it is empty. awaiting ECT eagerly. per staff, P 55. sleeping much of the evening. MoCA 25 on thursday, making for [facility]CI. Mental Status Exam Mental Status Exam Narrative: calm, cooperative. no PMA/PMR. adequately dressed and groomed. speech normal. with decr latency. thoughts generally linear and logical. affect flexible, normo-intense, non-labile. mood OK... empty. denies SI/SIBI. no HI/AVH expressed. Diagnostics Vital Signs (24Hr): Vital Signs - 24 hr 12/28/22 20:50 12/29/22 08:30 Temperature 98.2 F 97.6 F Pulse Rate 50 103 H Respiratory Rate 20 18 Blood Pressure 128/64 124/67 Pulse Oximetry 97 98 Oxygen Delivery Method Room Air Room Air BMI result Body Mass Index 33.4 Labs 12/24/22 17:46 12/26/22 08:30 Imaging Radiology Impressions: ITS Impressions Chest X-Ray 12/25/22 10:01 IMPRESSION: No acute cardiopulmonary process. Medications Medications Current Medications Acetaminophen (Acetaminophen 325 Mg Tablet) 650 mg PO Q6H PRN PRN Reason: Headache/Pain Mild Scale (1-3) Al Hydroxide/Mg Hydroxide (Magnesium Hydrox/Alum Hydrox 30 Ml Oral.Susp) 30 ml PO Q6H PRN PRN Reason: Heartburn/Nausea Amlodipine Besylate (Amlodipine Besylate 5 Mg Tablet) 5 mg PO DAILY [facility]; Protocol Last Admin: 12/29/22 08:37 Dose: 5 mg Clonazepam (Clonazepam 1 Mg Tablet) 1 mg PO TID PRN PRN Reason: Anxiety Last Admin: 12/29/22 08:43 Dose: 1 mg Clonidine HCl (Clonidine Hcl 0.1 Mg Tablet) 0.1 mg PO TID [facility]; Protocol Last Admin: 12/29/22 08:37 Dose: 0.1 mg Fluoxetine HCl (Fluoxetine Hcl 20 Mg Capsule) 60 mg PO DAILY [facility] Last Admin: 12/29/22 08:37 Dose: 60 mg Hydroxyzine HCl (Hydroxyzine Hcl 25 Mg Tablet) 25 mg PO Q6H PRN PRN Reason: Anxiety Magnesium Hydroxide (Milk Of Magnesia 30 Ml Oral.Susp) 30 ml PO DAILY PRN PRN Reason: Constipation Methadone HCl (Methadone Hcl 20 Mg/2 Ml Oral.Conc) 115 mg PO DAILY [facility] Last Admin: 12/29/22 08:36 Dose: 115 mg Prazosin HCl (Prazosin Hcl 5 Mg Capsule) 5 mg PO BEDTIME [facility]; Protocol Last Admin: 12/28/22 20:54 Dose: 5 mg Quetiapine Fumarate (Quetiapine Fumarate 400 Mg Tablet) 400 mg PO BEDTIME [facility] Last Admin: 12/28/22 20:54 Dose: 400 mg Trazodone HCl (Trazodone Hcl 50 Mg Tablet) 50 mg PO BEDTIME PRN PRN Reason: Insomnia Allergies Allergies Allergy/AdvReac Type Severity Reaction Status Date / Time No Known Allergies Allergy Verified 12/24/22 23:16 Assessment & Plan Assessment & Plan (1) Pre-op evaluation: Status: Acute Code(s): Z01.818 - Encounter for other preprocedural examination Assessment and Plan: Pt is a 57-year-old female with PMH patient significant for anxiety, depression, and polysubstance abuse who was admitted to psychiatry for worsening depression and SI with plan to overdose on her medications. Medical consult for ECT clearance. Pt has a history of SA with last attempt on 09/11/22. She has been researching TMS and ECT, and would like to proceed with ECT. At time of interview patient is very excited to begin her treatment. Pt denies a PMH of cerebral hemorrhage or stroke, CAD, space-occupying intracranial lesion, bleeding or otherwise unstable vascular aneurysm. No history of seizure, TBI, or severe pulmonary condition. Pt denies any past problems with anesthesiaPt. EKG negative for acute ischemia or prolonged QTc. Pt denies chest pain/pressure, palpitations, SOB, dizziness or lightheadedness. No abdominal pain, hematachezi a, melena. There are no obvious contraindications to the planned procedure. Mood disorder Plan as per Psychiatry ECT There are no obvious medical contraindications to the planned procedure Thank you for allowing us to participate in the care of this patient. Signing off at this time. Please let us know if there are any acute complaints or questions. (2) Major depressive disorder, recurrent: Status: Acute Code(s): F33.9 - Major depressive disorder, recurrent, unspecified Assessment and Plan: Plan 12/26: continue home medications regimen for now. refer for ECT: consult medici ne, check EKG, consult renee.? case d/w dr. duran today. check MoCA - possible anoxic brain injury after most recent overdose, with cognitive dysfxn. 12/28/2022: Noted primary team's preop evaluation for potential ECT. Pt open to same. 12/29: cleared by medicine for ECT. to be seen by renee today. continue current mgmt. MoCA 25: [facility]. Reason for contiued inpatient stay Substantial Risk for: harm to self, inability to function and rapid decompensation Time Spent With Patient Time: Total time managing care of this patient today ____ minutes.
[2022-12-29 20:30] VITALS: BP 109/56; PULSE 47; RESP 18; TEMP 36.6; O2SAT 95
[2022-12-29] MEDS: Prazosin HCL 5 MG CAPSULE PO (21:38)
[2022-12-29] MEDS: QUEtiapine Fumarate 400 MG TABLET PO (21:38)
--- NOTE | 2022-12-30 03:18 | PC.NURSE ---
Sharron is noted to have been isolating in here room throughout the evening. she c/o anxiety and received PRN klonopin with positive effect. she denies suicidal/homicidal ideation and AVH, she endorses anxiety 03/30 but denies depression. no behavioral concerns, monitor for safety, continue plan of care
[2022-12-30 08:20] VITALS: BP 138/83; PULSE 63; RESP 18; TEMP 36.3; O2SAT 96
[2022-12-30] MEDS: amLODIPine Besylate 5 MG TABLET PO (08:32)
[2022-12-30] MEDS: cloNIDine HCL 0.1 MG TABLET PO ×3 (08:33→20:07)
[2022-12-30] MEDS: FLUoxetine HCl 20 MG CAPSULE 60 MG PO (08:33)
[2022-12-30] MEDS: methADONE HCl 20 MG/2 ML ORAL.CONC 115 MG PO (08:34)
[2022-12-30] MEDS: clonazePAM 1 MG TABLET PO ×2 (13:19→20:07)
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
--- NOTE | 2022-12-30 16:47 | HO.PSYCHPN ---
Subjective Subjective Date of Service: 12/30/22 Reason For Visit: Si Interim History: calm, cooperative. studying on ECT. hopeful it will benefit her. case discussed with renee, will decrease klonopin to 1 mg BID PRN. per staff, depressed and fatigued. withdrawn. napping. safe. slept well. Mental Status Exam Mental Status Exam Narrative: calm, cooperative. no PMA/PMR. adequately dressed and groomed. speech normal. with decr latency. thoughts generally linear and logical. affect flexible, normo-intense, non-labile. mood depressed. no SI/SIBI/HI/AVH expressed. Diagnostics Vital Signs (24Hr): Vital Signs - 24 hr 12/29/22 20:30 12/30/22 08:20 Temperature 97.8 F 97.4 F Pulse Rate 47 L 63 Respiratory Rate 18 18 Blood Pressure 109/56 L 138/83 Pulse Oximetry 95 96 Oxygen Delivery Method Room Air Room Air BMI result Body Mass Index 33.4 Labs 12/24/22 17:46 12/26/22 08:30 Imaging Radiology Impressions: ITS Impressions Chest X-Ray 12/25/22 10:01 IMPRESSION: No acute cardiopulmonary process. Medications Medications Current Medications Acetaminophen (Acetaminophen 325 Mg Tablet) 650 mg PO Q6H PRN PRN Reason: Headache/Pain Mild Scale (1-3) Al Hydroxide/Mg Hydroxide (Magnesium Hydrox/Alum Hydrox 30 Ml Oral.Susp) 30 ml PO Q6H PRN PRN Reason: Heartburn/Nausea Amlodipine Besylate (Amlodipine Besylate 5 Mg Tablet) 5 mg PO DAILY [facility]; Protocol Last Admin: 12/30/22 08:32 Dose: 5 mg Clonazepam (Clonazepam 1 Mg Tablet) 1 mg PO BID PRN PRN Reason: Anxiety Clonidine HCl (Clonidine Hcl 0.1 Mg Tablet) 0.1 mg PO TID [facility]; Protocol Last Admin: 12/30/22 15:26 Dose: 0.1 mg Fluoxetine HCl (Fluoxetine Hcl 20 Mg Capsule) 60 mg PO DAILY [facility] Last Admin: 12/30/22 08:33 Dose: 60 mg Hydroxyzine HCl (Hydroxyzine Hcl 25 Mg Tablet) 25 mg PO Q6H PRN PRN Reason: Anxiety Magnesium Hydroxide (Milk Of Magnesia 30 Ml Oral.Susp) 30 ml PO DAILY PRN PRN Reason: Constipation Methadone HCl (Methadone Hcl 20 Mg/2 Ml Oral.Conc) 115 mg PO DAILY [facility] Last Admin: 12/30/22 08:34 Dose: 115 mg Prazosin HCl (Prazosin Hcl 5 Mg Capsule) 5 mg PO BEDTIME [facility]; Protocol Last Admin: 12/29/22 21:38 Dose: 5 mg Quetiapine Fumarate (Quetiapine Fumarate 400 Mg Tablet) 400 mg PO BEDTIME [facility] Last Admin: 12/29/22 21:38 Dose: 400 mg Trazodone HCl (Trazodone Hcl 50 Mg Tablet) 50 mg PO BEDTIME PRN PRN Reason: Insomnia Allergies Allergies Allergy/AdvReac Type Severity Reaction Status Date / Time No Known Allergies Allergy Verified 12/24/22 23:16 Assessment & Plan Assessment & Plan (1) Pre-op evaluation: Status: Acute Code(s): Z01.818 - Encounter for other preprocedural examination Assessment and Plan: Pt is a 57-year-old female with PMH patient significant for anxiety, depression, and polysubstance abuse who was admitted to psychiatry for worsening depression and SI with plan to overdose on her medications. Medical consult for ECT clearance. Pt has a history of SA with last attempt on 09/11/22. She has been researching TMS and ECT, and would like to proceed with ECT. At time of interview patient is very excited to begin her treatment. Pt denies a PMH of cerebral hemorrhage or stroke, CAD, space-occupying intracranial lesion, bleeding or otherwise unstable vascular aneurysm. No history of seizure, TBI, or severe pulmonary condition. Pt denies any past problems with anesthesiaPt. EKG negative for acute ischemia or prolonged QTc. Pt denies chest pain/pressure, palpitations, SOB, dizziness or lightheadedness. No abdominal pain, hematachezia, melena. There are no obvious contraindications to the planned procedure. Mood disorder Plan as per Psychiatry ECT There are no obvious medical contraindications to the planned procedure Thank you for allowing us to participate in the care of this patient. Signing off at this time. Please let us know if there are any acute complaints or questions. (2) Major depressive disorder, recurrent: Status: Acute Code(s): F33.9 - Major depressive disorder, recurrent, unspecified Assessment and Plan: Plan 12/26: continue home medications regimen for now. refer for ECT: consult medicine, check EKG, consult renee.? case d/w dr. duran today. check MoCA - possible anoxic brain injury after most recent overdose, with cognitive dysfxn. 12/28/2022: Noted primary team's preop evaluation for potential ECT. Pt open to same. 12/29: cleared by medicine for ECT. to be seen by renee today. continue current mgmt. MoCA 25: [facility]. 12/30: preparing for ECT. renee met with pt today and discussed case with this conventional mortgage underwriter. decrease klonopin to 1 mg BID PRN. T/C addition of abilify. Reason for contiued inpatient stay Substantial Risk for: harm to self, inability to function and rapid decompensation Time Spent With Patient Time: Total time managing care of this patient today __25__ minutes.
[2022-12-30] MEDS: Prazosin HCL 5 MG CAPSULE PO (20:07)
[2022-12-30] MEDS: QUEtiapine Fumarate 400 MG TABLET PO (20:07)
[2022-12-30 20:10] VITALS: BP 145/70; PULSE 49; RESP 16; TEMP 36.2; O2SAT 96
[2022-12-31 08:40] VITALS: BP 150/68; PULSE 46; RESP 14; TEMP 36.2; O2SAT 97
[2022-12-31] MEDS: amLODIPine Besylate 5 MG TABLET PO (08:41)
[2022-12-31] MEDS: FLUoxetine HCl 20 MG CAPSULE 60 MG PO (08:42)
[2022-12-31] MEDS: cloNIDine HCL 0.1 MG TABLET PO ×3 (08:43→20:35)
[2022-12-31] MEDS: clonazePAM 1 MG TABLET PO ×2 (08:44→20:36)
[2022-12-31] MEDS: methADONE HCl 20 MG/2 ML ORAL.CONC 115 MG PO (08:45)
--- NOTE | 2022-12-31 15:11 | P.PNPSI_ITS ---
Subjective Subjective Date of Service: 12/31/22 Reason For Visit: Si Interim History: calm, cooperative. will ask sisters about transportation for ECT. depressed, agreeable to increase prozac to 80 mg daily. per staff, dep/anx. denies SI/AVH. slept eves, then all NOC. [facility] application has been placed. Mental Status Exam Mental Status Exam Narrative: calm, cooperative. no PMA/PMR. adequately dressed and groomed. speech normal, with decr latency. thoughts generally linear and logical. affect flexible, normo-intense, non-labile. mood depressed. no SI/SIBI/HI/AVH expressed. Diagnostics Vital Signs (24Hr): Vital Signs - 24 hr 12/30/22 20:10 12/31/22 08:40 Temperature 97.2 F 97.2 F Pulse Rate 49 L 46 L Respiratory Rate 16 14 Blood Pressure 145/70 H 150/68 H Pulse Oximetry 96 97 Oxygen Delivery Method Room Air Room Air BMI result Body Mass Index 33.4 Labs 12/24/22 17:46 12/26/22 08:30 Imaging Radiology Impressions: ITS Impressions Chest X-Ray 12/25/22 10:01 IMPRESSION: No acute cardiopulmonary process. Medications Medications Current Medications Acetaminophen (Acetaminophen 325 Mg Tablet) 650 mg PO Q6H PRN PRN Reason: Headache/Pain Mild Scale (1-3) Al Hydroxide/Mg Hydroxide (Magnesium Hydrox/Alum Hydrox 30 Ml Oral.Susp) 30 ml PO Q6H PRN PRN Reason: Heartburn/Nausea Amlodipine Besylate (Amlodipine Besylate 5 Mg Tablet) 5 mg PO DAILY LILIAM; Protocol Last Admin: 12/31/22 08:41 Dose: 5 mg Clonazepam (Clonazepam 1 Mg Tablet) 1 mg PO BID PRN PRN Reason: Anxiety Last Admin: 12/31/22 08:44 Dose: 1 mg Clonidine HCl (Clonidine Hcl 0.1 Mg Tablet) 0.1 mg PO TID LILIAM; Protocol Last Admin: 12/31/22 08:43 Dose: 0.1 mg Fluoxetine HCl (Fluoxetine Hcl 20 Mg Capsule) 80 mg PO DAILY LILIAM Hydroxyzine HCl (Hydroxyzine Hcl 25 Mg Tablet) 25 mg PO Q6H PRN PRN Reason: Anxiety Magnesium Hydroxide (Milk Of Magnesia 30 Ml Oral.Susp) 30 ml PO DAILY PRN PRN Reason: Constipation Methadone HCl (Methadone Hcl 20 Mg/2 Ml Oral.Conc) 115 mg PO DAILY LILIAM Last Admin: 12/31/22 08:45 Dose: 115 mg Prazosin HCl (Prazosin Hcl 5 Mg Capsule) 5 mg PO BEDTIME LILIAM; Protocol Last Admin: 12/30/22 20:07 Dose: 5 mg Quetiapine Fumarate (Quetiapine Fumarate 400 Mg Tablet) 400 mg PO BEDTIME LILIAM Last Admin: 12/30/22 20:07 Dose: 400 mg Trazodone HCl (Trazodone Hcl 50 Mg Tablet) 50 mg PO BEDTIME PRN PRN Reason: Insomnia Allergies Allergies Allergy/AdvReac Type Severity Reaction Status Date / Time No Known Allergies Allergy Verified 12/24/22 23:16 Assessment & Plan Assessment & Plan (1) Opioid use disorder, severe, on maintenance therapy: Status: Acute Code(s): F11.20 - Opioid dependence, uncomplicated (2) Chronic post-traumatic stress disorder (PTSD): Status: Acute Code(s): F43.12 - Post-traumatic stress disorder, chronic (3) Major depressive disorder, recurrent severe without psychotic features: Status: Acute Code(s): F33.2 - Major depressive disorder, recurrent severe without psychotic features Assessment and Plan: per renee ECT consult: The patient is a 57 years old with history of trauma chronic severe depression despondent hopeless helpless with multiple losses and feeling of disconnection. She is asking for help and is open to ECT. Would try an taper down on clonazepam and consider trying to change Seroquel to will thought Rexulti. Although patient cannot clearly explain the multiple medication trials she has had over the years her recent suicide attempt which was quite significant her intrusive suicidal thoughts shortly there after with plan to overdose a trial of ECT would be indicated given the seriousness of her depression and suicide risk She might also benefit from intensive outpatient treatment no and suitable for discharge such as a partial hospital setting I would also recommend referral to [facility] for additional support and help in the outpatient setting. Patient meets criteria for ECT given her level of risk and suicidality recurrent depression severe Medical risk factors include hypertension mild cognitive impairment would use unilateral treatment her treatment will be complicated by clonazepam which should be lowered flumazenil can be considered Plan 12/26:? continue home medications regimen for now.? refer for ECT: consult medicine, check EKG, consult renee.? case d/w dr. duran today.? check MoCA - possible anoxic brain injury after most recent overdose, with cognitive dysfxn. 12/28/2022: Noted primary team's preop evaluation for potential ECT. Pt open to same. 12/29: cleared by medicine for ECT.? to be seen by renee today.? continue current mgmt.? MoCA 25: [facility]. 12/30: preparing for ECT.? renee met with pt today and discussed case with this technical document writer.? decrease klonopin to 1 mg BID PRN.? T/C addition of abilify. 12/31: awaiting ECT approval by insurance company. agreeable to increase prozac from 60 mg to 80 mg as of tomorrow for Tx of depression. discussing possible transportation arrangements for ECT with medical claims assistant and [employer] francis. Reason for contiued inpatient stay Substantial Risk for: harm to self, inability to function and rapid decompensation Time Spent With Patient Time: Total time managing care of this patient today __35__ minutes.
[2022-12-31 15:26] VITALS: BP 121/56; PULSE 50
[2022-12-31 20:00] VITALS: BP 138/62; PULSE 50; RESP 16; TEMP 36.2; O2SAT 93
[2022-12-31] MEDS: QUEtiapine Fumarate 400 MG TABLET PO (20:35)
[2022-12-31] MEDS: Prazosin HCL 5 MG CAPSULE PO (20:35)
[2023-01-01] MEDS: FLUoxetine HCl 20 MG CAPSULE 80 MG PO (09:33)
[2023-01-01] MEDS: cloNIDine HCL 0.1 MG TABLET PO ×3 (09:35→20:54)
[2023-01-01] MEDS: amLODIPine Besylate 5 MG TABLET PO (09:35)
[2023-01-01] MEDS: methADONE HCl 20 MG/2 ML ORAL.CONC 115 MG PO (09:36)
[2023-01-01 09:40] VITALS: BP 105/57; PULSE 53; RESP 18; TEMP 36.6; O2SAT 95
[2023-01-01] MEDS: clonazePAM 1 MG TABLET PO ×2 (10:21→21:59)
--- NOTE | 2023-01-01 15:16 | HO.PSYCHPN ---
Subjective Subjective Date of Service: 01/01/23 Reason For Visit: Si Interim History: calm, cooperative. glad to receive news ECT has been approved bcse her sister sebastian is willing to transport her once she discharges. expressing gratitude for her care here. per staff, blunted, flat. awaiting word on ECT. sis will transport. intermittent SI, no plan or intent. anx/dep0 7. eating and sleeping well. Mental Status Exam Mental Status Exam Narrative: calm, cooperative. no PMA/PMR. adequately dressed and groomed. speech normal, with decr latency. thoughts generally linear and logical. affect flexible, normo-intense, non-labile. mood depressed. no SI/SIBI/HI/AVH expressed. Diagnostics Vital Signs (24Hr): Vital Signs - 24 hr 12/31/22 15:26 12/31/22 20:00 01/01/23 09:40 Temperature 97.2 F 97.9 F Pulse Rate 50 50 53 Respiratory Rate 16 18 Blood Pressure 121/56 L 138/62 105/57 L Pulse Oximetry 93 95 Oxygen Delivery Method Room Air Room Air BMI result Body Mass Index 33.4 Labs 12/24/22 17:46 12/26/22 08:30 Imaging Radiology Impressions: ITS Impressions Chest X-Ray 12/25/22 10:01 IMPRESSION: No acute cardiopulmonary process. Medications Medications Current Medications Acetaminophen (Acetaminophen 325 Mg Tablet) 650 mg PO Q6H PRN PRN Reason: Headache/Pain Mild Scale (1-3) Al Hydroxide/Mg Hydroxide (Magnesium Hydrox/Alum Hydrox 30 Ml Oral.Susp) 30 ml PO Q6H PRN PRN Reason: Heartburn/Nausea Amlodipine Besylate (Amlodipine Besylate 5 Mg Tablet) 5 mg PO DAILY LILIAM; Protocol Last Admin: 01/01/23 09:35 Dose: 5 mg Benzocaine (Throat Lozenge, Medicated Lozenge) 1 lozenge MUCOUS MEM Q2H PRN PRN Reason: Sore Throat Clonazepam (Clonazepam 1 Mg Tablet) 1 mg PO BID PRN PRN Reason: Anxiety Last Admin: 01/01/23 10:21 Dose: 1 mg Clonidine HCl (Clonidine Hcl 0.1 Mg Tablet) 0.1 mg PO TID LILIAM; Protocol Last Admin: 01/01/23 09:35 Dose: 0.1 mg Fluoxetine HCl (Fluoxetine Hcl 20 Mg Capsule) 80 mg PO DAILY LILIAM Last Admin: 01/01/23 09:33 Dose: 80 mg Hydroxyzine HCl (Hydroxyzine Hcl 25 Mg Tablet) 25 mg PO Q6H PRN PRN Reason: Anxiety Magnesium Hydroxide (Milk Of Magnesia 30 Ml Oral.Susp) 30 ml PO DAILY PRN PRN Reason: Constipation Methadone HCl (Methadone Hcl 20 Mg/2 Ml Oral.Conc) 115 mg PO DAILY LILIAM Last Admin: 01/01/23 09:36 Dose: 115 mg Prazosin HCl (Prazosin Hcl 5 Mg Capsule) 5 mg PO BEDTIME LILIAM; Protocol Last Admin: 12/31/22 20:35 Dose: 5 mg Quetiapine Fumarate (Quetiapine Fumarate 400 Mg Tablet) 400 mg PO BEDTIME LILIAM Last Admin: 12/31/22 20:35 Dose: 400 mg Trazodone HCl (Trazodone Hcl 50 Mg Tablet) 50 mg PO BEDTIME PRN PRN Reason: Insomnia Allergies Allergies Allergy/AdvReac Type Severity Reaction Status Date / Time No Known Allergies Allergy Verified 12/24/22 23:16 Assessment & Plan Assessment & Plan (1) Opioid use disorder, severe, on maintenance therapy: Status: Acute Code(s): F11.20 - Opioid dependence, uncomplicated (2) Chronic post-traumatic stress disorder (PTSD): Status: Acute Code(s): F43.12 - Post-traumatic stress disorder, chronic (3) Major depressive disorder, recurrent severe without psychotic features: Status: Acute Code(s): F33.2 - Major depressive disorder, recurrent severe without psychotic features Assessment and Plan: per renee ECT consult: The patient is a 57 years old with history of trauma chronic severe depression despondent hopeless helpless with multiple losses and feeling of disconnection. She is asking for help and is open to ECT. Would try an taper down on clonazepam and consider trying to change Seroquel to will thought Rexulti. Although patient cannot clearly explain the multiple medication trials she has had over the years her recent suicide attempt which was quite significant her intrusive suicidal thoughts shortly there after with plan to overdose a trial of ECT would be indicated given the seriousness of her depression and suicide risk She might also benefit from intensive outpatient treatment no and suitable for discharge such as a partial hospital setting I would also recommend referral to [facility] for additional support and help in the outpatient setting. Patient meets criteria for ECT given her level of risk and suicidality recurrent depression severe Medical risk factors include hypertension mild cognitive impairment would use unilateral treatment her treatment will be complicated by clonazepam which should be lowered flumazenil can be considered Plan 12/26:? continue home medications regimen for now.? refer for ECT: consult medicine, check EKG, consult renee.? case d/w dr. duran today.? check MoCA - possible anoxic brain injury after most recent overdose, with cognitive dysfxn. 12/28/2022: Noted primary team's preop evaluation for potential ECT. Pt open to same. 12/29: cleared by medicine for ECT.? to be seen by renee today.? continue current mgmt.? MoCA 25: [facility]. 12/30: preparing for ECT.? renee met with pt today and discussed case with this publicity writer.? decrease klonopin to 1 mg BID PRN.? T/C addition of abilify. 12/31: awaiting ECT approval by insurance company. agreeable to increase prozac from 60 mg to 80 mg as of tomorrow for Tx of depression. discussing possible transportation arrangements for ECT with medical engineer and [employer]IG[employer] francis. 01/01: ECT approved as of tomorrow. sister will transport pt for ECT once discharged. continue current mgmt otherwise. Reason for contiued inpatient stay Substantial Risk for: harm to self, inability to function and rapid decompensation Time Spent With Patient Time: Total time managing care of this patient today __25__ minutes.
[2023-01-01 15:40] VITALS: BP 118/71; PULSE 46; RESP 14; TEMP 36.3; O2SAT 96
[2023-01-01 20:10] VITALS: BP 140/77; PULSE 44; RESP 18; TEMP 36.1; O2SAT 98
[2023-01-01] MEDS: hydrOXYzine HCL 25 MG TABLET PO (20:53)
[2023-01-01] MEDS: QUEtiapine Fumarate 400 MG TABLET PO (20:53)
[2023-01-01] MEDS: Prazosin HCL 5 MG CAPSULE PO (20:53)
[2023-01-01] MEDS: Magnesium Hydrox/Alum Hydrox 30 ML ORAL.SUSP PO (21:59)
--- NOTE | 2023-01-02 00:22 | PC.NURSE ---
Sharron was noted to be intermittently isolating in her room. she watched the video on ECT per Dr. Mcconnell's request. the patient was very upset by the video and became tearful stating I don't want to loose all my memories I don't want to forget my siblings or the of my child this technical document writer reassured the patient that the possible memory loss she might experience after ECT is often temporary more like feeling foggy about things that having no memory of the event or people. she said she wanted to call her sister to talk about it. she was encouraged to call her sister to discuss her concerns further. the patient later came to this RN and informed her that she had decided nt to move forward with ECT. Dr Sinclair made aware of the patients decision regarding ECT. continue to monitor or safety, continue plan of care
[2023-01-02] MEDS: clonazePAM 1 MG TABLET PO ×2 (06:16→16:32)
[2023-01-02] MEDS: methADONE HCl 20 MG/2 ML ORAL.CONC 115 MG PO (07:49)
[2023-01-02] MEDS: FLUoxetine HCl 20 MG CAPSULE 80 MG PO (07:52)
[2023-01-02] MEDS: amLODIPine Besylate 5 MG TABLET PO (07:53)
[2023-01-02] MEDS: cloNIDine HCL 0.1 MG TABLET PO ×3 (07:53→21:04)
[2023-01-02 08:00] VITALS: BP 128/76; PULSE 50; RESP 16; TEMP 36.3; O2SAT 96
--- NOTE | 2023-01-02 09:56 | HO.PSYCHPN ---
Subjective Subjective Date of Service: 01/02/23 Reason For Visit: Si Subjective Notes: Conditional Voluntary Healthcare Proxy: No Guardianship: No Interim History: pt fearful of ect seems more open to medication and finding ways to deal with her situation Mental Status Exam Mental Status Exam Patient Appearance: Well Grooomed Patient Orientation: Person, Place, Time and Situation Level of Consciousness: Awake and Appropriate Patient Behavior: Appropriate Mood Description: Depressed Affect Description: Appropriate and Constricted Patient Cognition Impaired: No Ability to Follow Directions: Good Speech Pattern: Clear Memory Description: Intact Hallucinations: None Delusions: Not Present Thought Process: Intact and Goal Oriented Thought Content: positive for Goal Oriented, positive for Preoccupation, negative for Suicidal Ideation or negative for Homicidal Ideation Depressive Symptoms: Increased Anxiety and Increased Fatigue Judgement: Good Judgement and Insight: improved outlook open to seroquel lowering starting abilify Diagnostics Vital Signs (24Hr): Vital Signs - 24 hr 01/01/23 15:40 01/01/23 20:10 01/02/23 08:00 Temperature 97.4 F 97.0 F 97.4 F Pulse Rate 46 L 44 L 50 Respiratory Rate 14 18 16 Blood Pressure 118/71 140/77 H 128/76 Pulse Oximetry 96 98 96 Oxygen Delivery Method Room Air Room Air Room Air BMI result Body Mass Index 33.4 Labs 12/24/22 17:46 12/26/22 08:30 Imaging Radiology Impressions: ITS Impressions Chest X-Ray 12/25/22 10:01 IMPRESSION: No acute cardiopulmonary process. Medications Medications Current Medications Acetaminophen (Acetaminophen 325 Mg Tablet) 650 mg PO Q6H PRN PRN Reason: Headache/Pain Mild Scale (1-3) Al Hydroxide/Mg Hydroxide (Magnesium Hydrox/Alum Hydrox 30 Ml Oral.Susp) 30 ml PO Q6H PRN PRN Reason: Heartburn/Nausea Last Admin: 01/01/23 21:59 Dose: 30 ml Amlodipine Besylate (Amlodipine Besylate 5 Mg Tablet) 5 mg PO DAILY LILIAM; Protocol Last Admin: 01/02/23 07:53 Dose: 5 mg Benzocaine (Throat Lozenge, Medicated Lozenge) 1 lozenge MUCOUS MEM Q2H PRN PRN Reason: Sore Throat Clonazepam (Clonazepam 1 Mg Tablet) 1 mg PO BID PRN PRN Reason: Anxiety Last Admin: 01/02/23 06:16 Dose: 1 mg Clonidine HCl (Clonidine Hcl 0.1 Mg Tablet) 0.1 mg PO TID LILIAM; Protocol Last Admin: 01/02/23 07:53 Dose: 0.1 mg Fluoxetine HCl (Fluoxetine Hcl 20 Mg Capsule) 80 mg PO DAILY LILIAM Last Admin: 01/02/23 07:52 Dose: 80 mg Hydroxyzine HCl (Hydroxyzine Hcl 25 Mg Tablet) 25 mg PO Q6H PRN PRN Reason: Anxiety Last Admin: 01/01/23 20:53 Dose: 25 mg Magnesium Hydroxide (Milk Of Magnesia 30 Ml Oral.Susp) 30 ml PO DAILY PRN PRN Reason: Constipation Methadone HCl (Methadone Hcl 20 Mg/2 Ml Oral.Conc) 115 mg PO DAILY LILIAM Last Admin: 01/02/23 07:49 Dose: 115 mg Prazosin HCl (Prazosin Hcl 5 Mg Capsule) 5 mg PO BEDTIME LILIAM; Protocol Last Admin: 01/01/23 20:53 Dose: 5 mg Quetiapine Fumarate (Quetiapine Fumarate 400 Mg Tablet) 400 mg PO BEDTIME LILIAM Last Admin: 01/01/23 20:53 Dose: 400 mg Trazodone HCl (Trazodone Hcl 50 Mg Tablet) 50 mg PO BEDTIME PRN PRN Reason: Insomnia Allergies Allergies Allergy/AdvReac Type Severity Reaction Status Date / Time No Known Allergies Allergy Verified 12/24/22 23:16 Assessment & Plan Assessment & Plan (1) Opioid use disorder, severe, on maintenance therapy: Status: Acute Code(s): F11.20 - Opioid dependence, uncomplicated (2) Chronic post-traumatic stress disorder (PTSD): Status: Acute Code(s): F43.12 - Post-traumatic stress disorder, chronic (3) Major depressive disorder, recurrent severe without psychotic features: Status: Acute Code(s): F33.2 - Major depressive disorder, recurrent severe without psychotic features Assessment and Plan: per renee ECT consult: The patient is a 57 years old with history of trauma chronic severe depression despondent hopeless helpless with multiple losses and feeling of disconnection. She is asking for help and is open to ECT. Would try an taper down on clonazepam and consider trying to change Seroquel to will thought Enmanuelulti. Although patient cannot clearly explain the multiple medication trials she has had over the years her recent suicide attempt which was quite significant her intrusive suicidal thoughts shortly there after with plan to overdose a trial of ECT would be indicated given the seriousness of her depression and suicide risk She might also benefit from intensive outpatient treatment no and suitable for discharge such as a partial hospital setting I would also recommend referral to [facility] for additional support and help in the outpatient setting. Patient meets criteria for ECT given her level of risk and suicidality recurrent depression severe Medical risk factors include hypertension mild cognitive impairment would use unilateral treatment her treatment will be complicated by clonazepam which should be lowered flumazenil can be considered Plan 12/26:? continue home medications regimen for now.? refer for ECT: consult medicine, check EKG, consult renee.? case d/w dr. duran today.? check MoCA - possible anoxic brain injury after most recent overdose, with cognitive dysfxn. 12/28/2022: Noted primary team's preop evaluation for potential ECT. Pt open to same. 12/29: cleared by medicine for ECT.? to be seen by renee today.? continue current mgmt.? MoCA 25: [facility]. 12/30: preparing for ECT.? renee met with pt today and discussed case with this technical publications writer.? decrease klonopin to 1 mg BID PRN.? T/C addition of abilify. 12/31: awaiting ECT approval by insurance company. agreeable to increase prozac from 60 mg to 80 mg as of tomorrow for Tx of depression. discussing possible transportation arrangements for ECT with medical coordinator pesticide use and [employer]IG[employer] francis. 01/01: ECT approved as of tomorrow. sister will transport pt for ECT once discharged. continue current mgmt otherwise. 01/02/23 hold ect lower seroquel start abilify consider [facility] referral dbt Reason for contiued inpatient stay Substantial Risk for: harm to self and rapid decompensation Time Spent With Patient Time: Total time managing care of this patient today ____ minutes.
[2023-01-02 21:02] VITALS: BP 128/70; PULSE 53; RESP 18; TEMP 36.3; O2SAT 97
[2023-01-02] MEDS: Prazosin HCL 5 MG CAPSULE PO (21:04)
[2023-01-02] MEDS: QUEtiapine Fumarate 300 MG TABLET PO (21:05)
[2023-01-03] MEDS: methADONE HCl 20 MG/2 ML ORAL.CONC 115 MG PO (07:35)
[2023-01-03] MEDS: ARIPiprazole 2 MG TABLET PO (08:56)
[2023-01-03] MEDS: cloNIDine HCL 0.1 MG TABLET PO ×3 (08:56→21:19)
[2023-01-03] MEDS: amLODIPine Besylate 5 MG TABLET PO (08:56)
[2023-01-03] MEDS: FLUoxetine HCl 20 MG CAPSULE 80 MG PO (08:57)
[2023-01-03] MEDS: clonazePAM 1 MG TABLET PO ×2 (09:05→15:38)
[2023-01-03 09:12] VITALS: BP 123/58; PULSE 49; RESP 16; TEMP 36.4; O2SAT 93
[2023-01-03] MEDS: hydrOXYzine HCL 25 MG TABLET PO ×2 (13:34→21:21)
[2023-01-03 21:15] VITALS: BP 154/85; PULSE 50; RESP 16; TEMP 36.1; O2SAT 96
[2023-01-03] MEDS: Prazosin HCL 5 MG CAPSULE PO (21:19)
[2023-01-03] MEDS: QUEtiapine Fumarate 300 MG TABLET PO (21:19)
[2023-01-04] MEDS: methADONE HCl 20 MG/2 ML ORAL.CONC 115 MG PO (06:29)
[2023-01-04] MEDS: clonazePAM 1 MG TABLET PO (08:46)
[2023-01-04] MEDS: cloNIDine HCL 0.1 MG TABLET PO (08:46)
[2023-01-04] MEDS: ARIPiprazole 2 MG TABLET PO (08:46)
[2023-01-04] MEDS: FLUoxetine HCl 20 MG CAPSULE 80 MG PO (08:46)
[2023-01-04] MEDS: amLODIPine Besylate 5 MG TABLET PO (08:46)
[2023-01-04 08:57] VITALS: BP 106/53; PULSE 48; RESP 18; TEMP 36.4; O2SAT 94
[2023-01-04] MEDS: Throat Lozenge, Medicated LOZENGE 1 LOZENGE MUCOUS MEM (09:59)
[2023-01-04] MEDS: Acetaminophen 325 MG TABLET 650 MG PO ×2 (15:21→21:29)
[2023-01-04] MEDS: cloNIDine HCL 0.1 MG TABLET 0.05 MG PO ×2 (15:43→20:15)
[2023-01-04 20:00] VITALS: BP 153/74; PULSE 54; RESP 16; TEMP 36.4; O2SAT 95
[2023-01-04] MEDS: QUEtiapine Fumarate 300 MG TABLET PO (20:15)
[2023-01-04] MEDS: Prazosin HCL 5 MG CAPSULE PO (20:15)
[2023-01-04] MEDS: hydrOXYzine HCL 25 MG TABLET PO (20:15)
--- NOTE | 2023-01-04 20:51 | HO.PSYCHPN ---
Subjective Subjective Date of Service: 01/03/23 Reason For Visit: Si Subjective Notes: Conditional Voluntary Healthcare Proxy: No Guardianship: No Interim History: Patient somewhat irritable reactive having a difficult time at times with reactivity she did discuss not seeing her primary care since overdose and having periods of shortness breath rare chest pain was open to cardiology consult Medication Compliance: Yes Mental Status Exam Mental Status Exam Patient Appearance: Well Grooomed Patient Orientation: Person, Place, Time and Situation Level of Consciousness: Awake and Appropriate Patient Behavior: Impulsive Mood Description: Depressed and Apprehensive Affect Description: Appropriate, Constricted and Labile Patient Cognition Impaired: No Ability to Follow Directions: Good Speech Pattern: Clear Memory Description: Intact Hallucinations: None Delusions: Not Present Thought Process: Intact and Goal Oriented Thought Content: positive for Goal Oriented, positive for Preoccupation, negative for Suicidal Ideation or negative for Homicidal Ideation Depressive Symptoms: Increased Anxiety and Increased Fatigue Judgement: Fair Judgement and Insight: Some periods of reactivity irritability Diagnostics Vital Signs (24Hr): Vital Signs - 24 hr 01/03/23 21:15 01/04/23 08:57 Temperature 97.0 F 97.5 F Pulse Rate 50 48 L Respiratory Rate 16 18 Blood Pressure 154/85 H 106/53 L Pulse Oximetry 96 94 Oxygen Delivery Method Room Air Room Air BMI result Body Mass Index 33.4 Labs 12/24/22 17:46 12/26/22 08:30 Imaging Radiology Impressions: ITS Impressions Chest X-Ray 12/25/22 10:01 IMPRESSION: No acute cardiopulmonary process. Medications Medications Current Medications Acetaminophen (Acetaminophen 325 Mg Tablet) 650 mg PO Q6H PRN PRN Reason: Headache/Pain Mild Scale (1-3) Last Admin: 01/04/23 15:21 Dose: 650 mg Al Hydroxide/Mg Hydroxide (Magnesium Hydrox/Alum Hydrox 30 Ml Oral.Susp) 30 ml PO Q6H PRN PRN Reason: Heartburn/Nausea Last Admin: 01/01/23 21:59 Dose: 30 ml Amlodipine Besylate (Amlodipine Besylate 5 Mg Tablet) 5 mg PO DAILY LILIAM; Protocol Last Admin: 01/04/23 08:46 Dose: 5 mg Aripiprazole (Aripiprazole 2 Mg Tablet) 4 mg PO DAILY LILIAM Benzocaine (Throat Lozenge, Medicated Lozenge) 1 lozenge MUCOUS MEM Q2H PRN PRN Reason: Sore Throat Last Admin: 01/04/23 09:59 Dose: 1 lozenge Clonidine HCl (Clonidine Hcl 0.1 Mg Tablet) 0.05 mg PO TID LILIAM; Protocol Last Admin: 01/04/23 20:15 Dose: 0.05 mg Fluoxetine HCl (Fluoxetine Hcl 20 Mg Capsule) 80 mg PO DAILY LILIAM Last Admin: 01/04/23 08:46 Dose: 80 mg Hydroxyzine HCl (Hydroxyzine Hcl 25 Mg Tablet) 25 mg PO Q6H PRN PRN Reason: Anxiety Last Admin: 01/04/23 20:15 Dose: 25 mg Magnesium Hydroxide (Milk Of Magnesia 30 Ml Oral.Susp) 30 ml PO DAILY PRN PRN Reason: Constipation Methadone HCl (Methadone Hcl 20 Mg/2 Ml Oral.Conc) 115 mg PO DAILY LILIAM Last Admin: 01/04/23 06:29 Dose: 115 mg Prazosin HCl (Prazosin Hcl 5 Mg Capsule) 5 mg PO BEDTIME LILIAM; Protocol Last Admin: 01/04/23 20:15 Dose: 5 mg Quetiapine Fumarate (Quetiapine Fumarate 300 Mg Tablet) 300 mg PO BEDTIME LILIAM Last Admin: 01/04/23 20:15 Dose: 300 mg Trazodone HCl (Trazodone Hcl 50 Mg Tablet) 50 mg PO BEDTIME PRN PRN Reason: Insomnia Allergies Allergies Allergy/AdvReac Type Severity Reaction Status Date / Time No Known Allergies Allergy Verified 12/24/22 23:16 Assessment & Plan Assessment & Plan (1) Opioid use disorder, severe, on maintenance therapy: Status: Acute Code(s): F11.20 - Opioid dependence, uncomplicated (2) Chronic post-traumatic stress disorder (PTSD): Status: Acute Code(s): F43.12 - Post-traumatic stress disorder, chronic (3) Major depressive disorder, recurrent severe without psychotic features: Status: Acute Code(s): F33.2 - Major depressive disorder, recurrent severe without psychotic features Assessment and Plan: per renee ECT consult: The patient is a 57 years old with history of trauma chronic severe depression despondent hopeless helpless with multiple losses and feeling of disconnection. She is asking for help and is open to ECT. Would try an taper down on clonazepam and consider trying to change Seroquel to will thought Enmanuelulti. Although patient cannot clearly explain the multiple medication trials she has had over the years her recent suicide attempt which was quite significant her intrusive suicidal thoughts shortly there after with plan to overdose a trial of ECT would be indicated given the seriousness of her depression and suicide risk She might also benefit from intensive outpatient treatment no and suitable for discharge such as a partial hospital setting I would also recommend referral to [facility] for additional support and help in the outpatient setting. Patient meets criteria for ECT given her level of risk and suicidality recurrent depression severe Medical risk factors include hypertension mild cognitive impairment would use unilateral treatment her treatment will be complicated by clonazepam which should be lowered flumazenil can be considered Plan 12/26:? continue home medications regimen for now.? refer for ECT: consult medicine, check EKG, consult renee.? case d/w dr. duran today.? check MoCA - possible anoxic brain injury after most recent overdose, with cognitive dysfxn. 12/28/2022: Noted primary team's preop evaluation for potential ECT. Pt open to same. 12/29: cleared by medicine for ECT.? to be seen by renee today.? continue current mgmt.? MoCA 25: [facility]. 12/30: preparing for ECT.? renee met with pt today and discussed case with this report writer.? decrease klonopin to 1 mg BID PRN.? T/C addition of abilify. 12/31: awaiting ECT approval by insurance company. agreeable to increase prozac from 60 mg to 80 mg as of tomorrow for Tx of depression. discussing possible transportation arrangements for ECT with medical claims representative and [facility] francis. 01/01: ECT approved as of tomorrow. sister will transport pt for ECT once discharged. continue current mgmt otherwise. 01/02/23 hold ect lower seroquel start abilify consider php referral dbt 01/03/2023 Increase Abilify to 4 mg monitor response patient talking about discharge and seemed open to purging her difficulties through psychological approaches behavioral activation adaptations in addition to medication and avoid discussed difficulties that she has at home 1 of her sisters denies self-harming thoughts Guardian/Caregiver educated on: medication risk/benefits and therapeutic strategies Informed Consent: understands Reason for continued inpatient stay Substantial Risk for: harm to self Time Spent With Patient Time: Total time managing care of this patient today ____ minutes.
--- NOTE | 2023-01-04 21:02 | P.PNPSI_ITS ---
Subjective Subjective Date of Service: 01/04/23 Reason For Visit: Si Subjective Notes: Conditional Voluntary Healthcare Proxy: No Guardianship: No Interim History: Patient more irritable and reactive at times rejection sensitive was able to discuss how she worried about her cardiac state in relation to ECT and the fact that she had never seen her primary care since overdosing and had cardiac issues when she was at [facility] Medication Compliance: Yes Side effects from medications: Yes Attending Groups: Intermittent Mental Status Exam Mental Status Exam Patient Appearance: Disheveled Patient Orientation: Person, Place, Time and Situation Level of Consciousness: Awake and Appropriate Patient Behavior: Avoidant and Impulsive Mood Description: Depressed and Apprehensive Affect Description: Appropriate, Constricted and Labile Patient Cognition Impaired: No Ability to Follow Directions: Good Speech Pattern: Clear Memory Description: Intact Hallucinations: None Delusions: Not Present Thought Process: Intact and Goal Oriented Thought Content: positive for Goal Oriented, positive for Preoccupation, negative for Suicidal Ideation or negative for Homicidal Ideation Depressive Symptoms: Increased Anxiety and Increased Fatigue Judgement: Fair Judgement and Insight: Some periods of reactivity irritability Diagnostics Vital Signs (24Hr): Vital Signs - 24 hr 01/03/23 21:15 01/04/23 08:57 Temperature 97.0 F 97.5 F Pulse Rate 50 48 L Respiratory Rate 16 18 Blood Pressure 154/85 H 106/53 L Pulse Oximetry 96 94 Oxygen Delivery Method Room Air Room Air BMI result Body Mass Index 33.4 Labs 12/24/22 17:46 12/26/22 08:30 Imaging Radiology Impressions: ITS Impressions Chest X-Ray 12/25/22 10:01 IMPRESSION: No acute cardiopulmonary process. Medications Medications Current Medications Acetaminophen (Acetaminophen 325 Mg Tablet) 650 mg PO Q6H PRN PRN Reason: Headache/Pain Mild Scale (1-3) Last Admin: 01/04/23 15:21 Dose: 650 mg Al Hydroxide/Mg Hydroxide (Magnesium Hydrox/Alum Hydrox 30 Ml Oral.Susp) 30 ml PO Q6H PRN PRN Reason: Heartburn/Nausea Last Admin: 01/01/23 21:59 Dose: 30 ml Amlodipine Besylate (Amlodipine Besylate 5 Mg Tablet) 5 mg PO DAILY LILIAM; Protocol Last Admin: 01/04/23 08:46 Dose: 5 mg Aripiprazole (Aripiprazole 2 Mg Tablet) 4 mg PO DAILY [facility] Benzocaine (Throat Lozenge, Medicated Lozenge) 1 lozenge MUCOUS MEM Q2H PRN PRN Reason: Sore Throat Last Admin: 01/04/23 09:59 Dose: 1 lozenge Clonidine HCl (Clonidine Hcl 0.1 Mg Tablet) 0.05 mg PO TID LILIAM; Protocol Last Admin: 01/04/23 20:15 Dose: 0.05 mg Fluoxetine HCl (Fluoxetine Hcl 20 Mg Capsule) 60 mg PO DAILY LILIAM Hydroxyzine HCl (Hydroxyzine Hcl 25 Mg Tablet) 25 mg PO Q6H PRN PRN Reason: Anxiety Last Admin: 01/04/23 20:15 Dose: 25 mg Magnesium Hydroxide (Milk Of Magnesia 30 Ml Oral.Susp) 30 ml PO DAILY PRN PRN Reason: Constipation Methadone HCl (Methadone Hcl 20 Mg/2 Ml Oral.Conc) 115 mg PO DAILY LILIAM Last Admin: 01/04/23 06:29 Dose: 115 mg Prazosin HCl (Prazosin Hcl 5 Mg Capsule) 5 mg PO BEDTIME LILIAM; Protocol Last Admin: 01/04/23 20:15 Dose: 5 mg Quetiapine Fumarate (Quetiapine Fumarate 300 Mg Tablet) 300 mg PO BEDTIME LILIAM Last Admin: 01/04/23 20:15 Dose: 300 mg Trazodone HCl (Trazodone Hcl 50 Mg Tablet) 50 mg PO BEDTIME PRN PRN Reason: Insomnia Allergies Allergies Allergy/AdvReac Type Severity Reaction Status Date / Time No Known Allergies Allergy Verified 12/24/22 23:16 Assessment & Plan Assessment & Plan (1) Opioid use disorder, severe, on maintenance therapy: Status: Acute Code(s): F11.20 - Opioid dependence, uncomplicated (2) Chronic post-traumatic stress disorder (PTSD): Status: Acute Code(s): F43.12 - Post-traumatic stress disorder, chronic (3) Major depressive disorder, recurrent severe without psychotic features: Status: Acute Code(s): F33.2 - Major depressive disorder, recurrent severe without psychotic features Assessment and Plan: per renee ECT consult: The patient is a 57 years old with history of trauma chronic severe depression despondent hopeless helpless with multiple losses and feeling of disconnection. She is asking for help and is open to ECT. Would try an taper down on clonazepam and consider trying to change Seroquel to will thought Rexulti. Although patient cannot clearly explain the multiple medication trials she has had over the years her recent suicide attempt which was quite significant her intrusive suicidal thoughts shortly there after with plan to overdose a trial of ECT would be indicated given the seriousness of her depression and suicide risk She might also benefit from intensive outpatient treatment no and suitable for discharge such as a partial hospital setting I would also recommend referral to [facility] [place] for additional support and help in the outpatient setting. Patient meets criteria for ECT given her level of risk and suicidality recurrent depression severe Medical risk factors include hypertension mild cognitive impairment would use unilateral treatment her treatment will be complicated by clonazepam which should be lowered flumazenil can be considered Plan 12/26:? continue home medications regimen for now.? refer for ECT: consult medicine, check EKG, consult renee.? case d/w dr. duran today.? check MoCA - possible anoxic brain injury after most recent overdose, with cognitive dysfxn. 12/28/2022: Noted primary team's preop evaluation for potential ECT. Pt open to same. 12/29: cleared by medicine for ECT.? to be seen by renee today.? continue current mgmt.? MoCA 25: MCI. 12/30: preparing for ECT.? renee met with pt today and discussed case with this telegraphic typewriter operator.? decrease klonopin to 1 mg BID PRN.? T/C addition of abilify. 12/31: awaiting ECT approval by insurance company. agreeable to increase prozac from 60 mg to 80 mg as of tomorrow for Tx of depression. discussing possible transportation arrangements for ECT with nuclear medical technologist and [employer]IG[facility] francis. 01/01: ECT approved as of tomorrow. sister will transport pt for ECT once discharged. continue current mgmt otherwise. 01/02/23 hold ect lower seroquel start abilify consider php referral dbt 01/03/2023 Increase Abilify to 4 mg monitor response patient talking about discharge and seemed open to purging her difficulties through psychological approaches behavioral activation adaptations in addition to medication and avoid discussed difficulties that she has at home 1 of her sisters denies self-harming thoughts 01/04/2023 Patient with some irritability reactivity. Seems to be having a difficult time the unit rejection sensitivity noted. Discussed having cardiology consult patient bradycardia fatigue unclear if related all to her medical state. Lower fluoxetine to 60 mg lower Abilify to 2.5 mg may need slower titration monitor for safety Patient educated on: diagnosis, medication risk/benefits and medical condition Informed Consent: understands Reason for continued inpatient stay Substantial Risk for: harm to self and rapid decompensation Time Spent With Patient Time: Total time managing care of this patient today ____ minutes.
[2023-01-05] MEDS: hydrOXYzine HCL 25 MG TABLET PO ×2 (02:57→20:16)
[2023-01-05] MEDS: Throat Lozenge, Medicated LOZENGE 1 LOZENGE MUCOUS MEM (02:57)
[2023-01-05] MEDS: Acetaminophen 325 MG TABLET 650 MG PO ×3 (04:01→17:18)
[2023-01-05 06:00] VITALS: BP 182/88; PULSE 61; RESP 18; O2SAT 96
[2023-01-05] MEDS: methADONE HCl 20 MG/2 ML ORAL.CONC 115 MG PO (07:26)
[2023-01-05] MEDS: FLUoxetine HCl 20 MG CAPSULE 60 MG PO (08:38)
[2023-01-05] MEDS: ARIPiprazole 5 MG TABLET 2.5 MG PO (08:39)
[2023-01-05] MEDS: amLODIPine Besylate 5 MG TABLET PO (08:40)
[2023-01-05] MEDS: clonazePAM 1 MG TABLET PO ×2 (08:41→17:18)
[2023-01-05] MEDS: cloNIDine HCL 0.1 MG TABLET 0.05 MG PO ×3 (08:41→20:16)
--- NOTE | 2023-01-05 10:49 | CA_ITS ---
Transthoracic Echocardiogram Patient (Last, First, Middle): Sharron Enciso, Gender: Female Date of : 1965 Age: 58 Procedure Date: 01/05/2023 Procedure Type: Transthoracic Echocardiogram Location: S3 Psych Height: 172.72 cm Weight: 99.79 kg BSA: 2.13 m2 Heart Rate: bpm BP: 182 / 88 mmHg Basting Machine Operator: Referring MD: Umesh Quesada MD Symptoms: SOB Study Quality: Adequate ECG Rhythm: Sinus Bradycardia Conclusions: - The left ventricular systolic function is normal. The visually estimated ejection fraction is between 60-65%. - No obvious valvular pathology seen on this study. Findings Left Ventricle Normal left ventricular cavity size. There is mildly increased left ventricular wall thickness. The left ventricular systolic function is normal. The visually estimated ejection fraction is between 60-65%. There is no evidence of regional wall motion abnormalities. Diastolic function is normal for age. Right Ventricle Mildly increased right ventricular cavity size. There is normal right ventricular systolic function. Atria Both atria are normal in size. Aortic Valve There is a normal trileaflet aortic valve. There is no aortic valve stenosis. There is no aortic valve regurgitation. Mitral Valve The mitral valve appears normal. There is no mitral valve regurgitation. There is no mitral valve stenosis. Pulmonic Valve The pulmonic valve is likely normal. Tricuspid Valve Normal tricuspid valve structure. There is mild tricuspid valve regurgitation. There is no evidence of pulmonary hypertension. Great Vessels The asc aorta is normal in size. Venous The inferior vena cava is normal in size and collapses greater than 50% with inspiration. Pericardium/Pleural There is no evidence of pericardial effusion. Prior Study Comparison No prior study available for comparison. Recommendations, Care & Conclusions No obvious valvular pathology seen on this study. Measurements 2D Linear Measurements IVSd: 1.10 0.6-0.9/0.6-1.0 cm LVIDd: 4.92 3.9-5.3/4.2-5.9 cm LVIDd Index: 2.31 2.4-3.2/2.2-3.1 cm/m2 LVIDs: 3.29 2.0-3.6 cm LVPWd: 1.15 0.7-1.1 cm Ao Root: 3.10 2.1-3.5 cm LA Diam: 4.50 2.7-3.8/3.0-4.0 cm LAIDs Index: 2.11 1.5-2.3 cm/m2 LV Mass: 259.49 67-162/88-224 g LV Mass Index: 121.82 43-95/49-115 g/m2 LVOT Diam: 2.00 3.0+(-)1.3 cm 2D Systolic Function EF 4C: 70.30 >55% EF 2C: 74.10 >55% EF BiP: 72.40 >55% Mitral Valve MV Pk E: 1.06 MV PK A: 0.78 MV Decel Time: 184.00 E/A: 1.40 E'Lateral: 11.20 E'Medial: 7.07 E/E' Med: 15.00 E/E' Lat: 9.50 PHT: 54.00 MVA PHT: 4.07 Decel Saunders: 5.75 Aortic Valve AoV Pk Waqar: 1.66 AoV Mn Waqar: 1.17 AoV VTI: 0.45 AoV Pk Grad: 11.00 Aov Mn Grad: 6.00 LOYDA Cont.VTI: 2.05 LVOT LVOT Pk Waqar: 1.17 LVOT Mn Waqar: 0.71 LVOT VTI: 0.30 LVOT Pk Grad: 5.00 LVOT Mn Grad: 3.00 LVOT Diam: 2.00 LVOT Area: 3.14 Diastolic Function MV Pk E: 1.06 MV Pk A: 0.78 E/A: 1.40 E'Medial: 7.07 E/E' Med: 15.00 E' Laterial: 11.20 E/E' Lat: 9.50 Right Ventricle TAPSE (mm): 23.00 Tricuspid Valve TR Pk Waqar: 2.38 TR Pk Grad: 23.00 RA Press: 3.00 RVSP: 26.00 Great Vessels Aorta Ao Root-2D: 3.10 2.0-3.7 cm Ao Asc: 3.40 2.1-3.4 cm Pulmonary Valve PV Pk Waqar: 1.00 Peak PV Grad: 4.00 Updated in Other Vendor System with Status of Final Umesh Quesada MD electronically signed on 01/06/2023 11:24:33 AM with status of Final
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
--- NOTE | 2023-01-05 13:15 | HO.PSYCHPN ---
Subjective Subjective Date of Service: 01/05/23 Reason For Visit: Si Subjective Notes: Conditional Voluntary Interim History: The nursing staff reported the patient had been compliant with treatment, she is upset since his today his per day and she wants to go home. She complained of anxiety, her vital signs have been stable. We discussed with the team we agreed to put back Klonopin 1 mg p.o. b.i.d. p.r.n. since her vital signs are stable. On interview the patient denies new symptoms she is happy that we are putting back her on Klonopin p.r.n.. Mental Status Exam Mental Status Exam Patient Appearance: Well Grooomed Patient Orientation: Situation Level of Consciousness: Awake and Appropriate Patient Behavior: Guarded and Passive Mood Description: Calm Affect Description: Depressed Patient Cognition Impaired: No Ability to Follow Directions: Good Speech Pattern: Clear Hallucinations: None Delusions: Not Present Thought Process: Linear Thought Content: positive for Circumstantial Judgement: Fair Diagnostics Vital Signs (24Hr): Vital Signs - 24 hr 01/04/23 20:00 01/05/23 06:00 Temperature 97.6 F Pulse Rate 54 61 Respiratory Rate 16 18 Blood Pressure 153/74 H 182/88 H Pulse Oximetry 95 96 Oxygen Delivery Method Room Air Room Air BMI result Body Mass Index 33.4 Labs 12/24/22 17:46 12/26/22 08:30 Imaging Radiology Impressions: ITS Impressions Chest X-Ray 12/25/22 10:01 IMPRESSION: No acute cardiopulmonary process. Medications Medications Current Medications Acetaminophen (Acetaminophen 325 Mg Tablet) 650 mg PO Q6H PRN PRN Reason: Headache/Pain Mild Scale (1-3) Last Admin: 01/05/23 10:18 Dose: 650 mg Al Hydroxide/Mg Hydroxide (Magnesium Hydrox/Alum Hydrox 30 Ml Oral.Susp) 30 ml PO Q6H PRN PRN Reason: Heartburn/Nausea Last Admin: 01/01/23 21:59 Dose: 30 ml Amlodipine Besylate (Amlodipine Besylate 5 Mg Tablet) 5 mg PO DAILY LILIAM; Protocol Last Admin: 01/05/23 08:40 Dose: 5 mg Aripiprazole (Aripiprazole 5 Mg Tablet) 2.5 mg PO DAILY LILIAM Last Admin: 01/05/23 08:39 Dose: 2.5 mg Benzocaine (Throat Lozenge, Medicated Lozenge) 1 lozenge MUCOUS MEM Q2H PRN PRN Reason: Sore Throat Last Admin: 01/05/23 02:57 Dose: 1 lozenge Clonazepam (Clonazepam 1 Mg Tablet) 1 mg PO BID PRN PRN Reason: Anxiety Last Admin: 01/05/23 08:41 Dose: 1 mg Clonidine HCl (Clonidine Hcl 0.1 Mg Tablet) 0.05 mg PO TID LILIAM; Protocol Last Admin: 01/05/23 08:41 Dose: 0.05 mg Fluoxetine HCl (Fluoxetine Hcl 20 Mg Capsule) 60 mg PO DAILY LILIAM Last Admin: 01/05/23 08:38 Dose: 60 mg Hydroxyzine HCl (Hydroxyzine Hcl 25 Mg Tablet) 25 mg PO Q6H PRN PRN Reason: Anxiety Last Admin: 01/05/23 02:57 Dose: 25 mg Magnesium Hydroxide (Milk Of Magnesia 30 Ml Oral.Susp) 30 ml PO DAILY PRN PRN Reason: Constipation Methadone HCl (Methadone Hcl 20 Mg/2 Ml Oral.Conc) 115 mg PO DAILY LILIAM Last Admin: 01/05/23 07:26 Dose: 115 mg Prazosin HCl (Prazosin Hcl 5 Mg Capsule) 5 mg PO BEDTIME LILIAM; Protocol Last Admin: 01/04/23 20:15 Dose: 5 mg Quetiapine Fumarate (Quetiapine Fumarate 300 Mg Tablet) 300 mg PO BEDTIME LILIAM Last Admin: 01/04/23 20:15 Dose: 300 mg Trazodone HCl (Trazodone Hcl 50 Mg Tablet) 50 mg PO BEDTIME PRN PRN Reason: Insomnia Allergies Allergies Allergy/AdvReac Type Severity Reaction Status Date / Time No Known Allergies Allergy Verified 12/24/22 23:16 Assessment & Plan Assessment & Plan (1) Labile hypertension: Status: Acute Code(s): R09.89 - Other specified symptoms and signs involving the circulatory and respiratory systems (2) Sinus bradycardia: Status: Acute Code(s): R00.1 - Bradycardia, unspecified (3) Major depressive disorder, recurrent severe without psychotic features: Status: Acute Code(s): F33.2 - Major depressive disorder, recurrent severe without psychotic features (4) Precordial chest pain: Status: Acute Code(s): R07.2 - Precordial pain (5) SOB (shortness of breath): Status: Acute Code(s): R06.02 - Shortness of breath Plan With regard to hypertension with labile readings, could be related to her medications including clonidine and prazosin. In her case, it seems they are more used for psychiatric reasons but the also influence blood pressure and can cause blood pressure swings. From pure blood pressure standpoint, she is on amlodipine. This can be adjusted as an outpatient further as necessary. Apart from 1 blood pressure reading of 182/88 mm Hg, others are fairly reasonable. Nothing profoundly high or profoundly low. With regard to sinus bradycardia, again likely from medications including methadone, clonidine. She has no symptoms like dizziness presyncope and hence no specific management for the bradycardia. Her corrected QT seems acceptable. With regard to question of chest pain and shortness of breath, sound very nonspecific. We can get an echocardiogram to ensure there is no structural abnormality. With regard to follow-up, she states she already has an outpatient cardiology appointment previously made. She can keep that appointment. Plan 1. Keepr regular medications 2. Re-start Klonopin 1 mg po bid PRN on January 05. Reason for continued inpatient stay Substantial Risk for: inability to function, rapid decompensation and med/psych decompensation Time Spent With Patient Time: Total time managing care of this patient today __20__ minutes.
[2023-01-05 15:03] VITALS: BP 125/63; PULSE 63; RESP 18; TEMP 36.6; O2SAT 97
[2023-01-05] MEDS: Ibuprofen 600 MG TABLET PO ×2 (15:06→21:11)
[2023-01-05 20:15] VITALS: BP 177/81; PULSE 50; RESP 18; TEMP 36.6; O2SAT 99
[2023-01-05] MEDS: Prazosin HCL 5 MG CAPSULE PO (20:17)
[2023-01-05] MEDS: QUEtiapine Fumarate 300 MG TABLET PO (20:17)
[2023-01-06] MEDS: Acetaminophen 325 MG TABLET 650 MG PO (00:30)
[2023-01-06] MEDS: clonazePAM 1 MG TABLET PO ×2 (00:33→10:09)
[2023-01-06] MEDS: methADONE HCl 20 MG/2 ML ORAL.CONC 115 MG PO (06:00)
[2023-01-06 08:10] VITALS: BP 156/87; PULSE 60; RESP 18; TEMP 36.6; O2SAT 98
[2023-01-06] MEDS: FLUoxetine HCl 20 MG CAPSULE 60 MG PO (08:19)
[2023-01-06] MEDS: Ibuprofen 600 MG TABLET PO (08:20)
[2023-01-06] MEDS: ARIPiprazole 5 MG TABLET 2.5 MG PO (08:20)
[2023-01-06] MEDS: cloNIDine HCL 0.1 MG TABLET 0.05 MG PO (08:21)
[2023-01-06] MEDS: amLODIPine Besylate 5 MG TABLET PO (08:23)
[2023-01-06] MEDS: hydrOXYzine HCL 25 MG TABLET PO (08:26)
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
--- NOTE | 2023-01-06 14:04 | PC.NURSE ---
Pt ready and aware of discharge. Denies SI/HI/AH/VH she reports she will be living with her 2 sisters . Pt received all belongings back to include clothes . money phone and various other things. Discharge instructions appointments and medicaiton reviewed with pt, she verbalized understanding.
== END 2023-01-06 13:55 | disposition home or self-care (01) | DRG 751 ==
LOC: HO.ED 20:07 → HO.PADLT16 12-25 15:18
PROVIDERS: Physician Assistant; Social Worker; Admitting Provider Psychiatry & Neurology Psychiatry; Emergency Provider Emergency Medicine; PCP Psychiatry & Neurology Psychiatry; Visit Provider Psychiatry & Neurology Psychiatry
DX: F33.2 Major depressive disorder, recurrent severe without psychotic features (principal); R45.851 Suicidal ideations; F11.20 Opioid dependence, uncomplicated; F43.12 Post-traumatic stress disorder, chronic; I10 Essential (primary) hypertension; F17.210 Nicotine dependence, cigarettes, uncomplicated; Z71.6 Tobacco abuse counseling; Z23 Encounter for immunization; Z62.810 Personal history of physical and sexual abuse in childhood; Z20.822 Contact with and (suspected) exposure to COVID-19; Z79.899 Other long term (current) drug therapy
CPT/HCPCS: 36415; 71046; 80053; 80061; 80143; 80179; 80307; 81001; 82077; 82607; 82746; 83036; 83690; 83735; 84443; 85025; 87086; 87635; 90686; 93005; 93306; 99285; S9485

== ENCOUNTER 2023-07-23 11:50 | Emergency (ER) | payer OTHER, SELFPAY ==
--- NOTE | 2023-07-23 12:12 | ECG_ITS ---
Test Reason : chest pain Blood Pressure : / mmHG Vent. Rate : 045 BPM Atrial Rate : 045 BPM P-R Int : 186 ms QRS Dur : 094 ms QT Int : 530 ms P-R-T Axes : 044 014 030 degrees QTc Int : 458 ms Sinus bradycardia Otherwise normal ECG When compared with ECG of 29-DEC-2022 10:20, No significant change was found Referred By: Generic ED Physician Electronically Signed By:JUANA BOLANOS MD
[2023-07-23 12:18] VITALS: BP 148/69; PULSE 48; RESP 18; TEMP 36.8; O2SAT 98; BMI 36.0
--- NOTE | 2023-07-23 12:25 | ED.GENADULT ---
HPI - General Adult General Chief complaint: General Medical Stated complaint: chest pain ,sob, dizzy Time Seen by Provider: 07/23/23 12:25 Source: patient Mode of arrival: ambulatory Limitations: no limitations History of Present Illness HPI narrative: Patient is a 58-year-old female with history of HTN, sinus bradycardia, major depressive disorder, PTSD presenting to the emergency department with complaint of abdominal pain and bloating worse after eating for the past 2-3 weeks. She also reports generalized fatigue, worse with exertion. Reports intermittent headaches and lightheadedness as well as chest pain over the past few weeks but denies current headache or current chest pain. Reports that her episodes of chest pain coincide with her headaches. She denies visual changes. Denies headaches worst at onset, denies worst headache of life. Denies palpitations. Denies any episodes of syncope. Reports nausea. Denies any vomiting, diarrhea, constipation. States that she has an appointment with her PCP on Thursday for same symptoms but felt the abdominal pain and bloating were worse than normal this morning. Denies any hematochezia or melena. Does report difficulty with urination, states stream is weak for past week. Denies back or flank pain. MD complaint: abdominal pain Onset (ago): week(s) Location: abdomen Radiation: non-radiation Severity: moderate Quality: other (bloating) Pain Consistency: intermittent Relieving factors: none Exacerbating factors: eating Associated symptoms: other (fatigue) Treatments prior to arrival: none Related Data Home Medications Medication Instructions Recorded Confirmed amlodipine 5 mg tablet 5 mg PO DAILY 12/24/22 12/24/22 prazosin 5 mg capsule 5 mg PO BEDTIME 12/24/22 12/24/22 methadone 10 mg/mL oral 116 mg PO DAILY 12/25/22 12/25/22 concentrate (Methadone Intensol) Previous Rx's Medication Instructions Recorded aripiprazole 2 mg tablet 2 mg PO DAILY 30 days #30 tabs 01/06/23 clonazepam 1 mg tablet 1 mg PO BID PRN Anxiety #1 tab 01/06/23 clonidine HCl 0.1 mg tablet 0.05 mg (1/2 x 0.1 mg) PO TID #1 01/06/23 tab fluoxetine 20 mg capsule 60 mg (3 x 20 mg) PO DAILY 30 days 01/06/23 #90 caps quetiapine 300 mg tablet 300 mg PO BEDTIME 30 days #30 tabs 01/06/23 cefuroxime axetil 500 mg tablet 500 mg PO BID #14 tabs 07/23/23 Allergies Allergy/AdvReac Type Severity Reaction Status Date / Time No Known Allergies Allergy Verified 12/24/22 23:16 Review of Systems Review of Systems: As per HPI. Yes all other systems are reviewed and are negative Constitutional: Constitutional: Reports as per HPI COUNT INCLUDES [facility] Past Medical History Medical History (Updated 07/23/23 @ 13:58 by Ivett Ferguson NP) Essential hypertension Major depressive disorder, recurrent Social History Social History Household Members: Family Housing: House Do you presently have visiting nurse or other home services: No Alcohol intake: former Patient Tobacco Use Status: Current everyday Tobacco user Tobacco use type: Cigarette Cigarette Packs Per Day: 0.25 Cigarettes Per Day: 5.0 e-Cigarette/Vaping Use: Never Used Second Hand Smoke Exposure: Yes Advance Directives: No service: No Sexual orientation: Straight/Heterosexual Physical Exam ED Vital Signs: Vital Signs - 24 hr 07/23/23 12:18 Temperature 98.2 F Pulse Rate 48 L Respiratory Rate 18 Blood Pressure 148/69 H Pulse Oximetry 98 Oxygen Delivery Method Room Air BMI result Body Mass Index 36.0 Vital signs have been reviewed and appear to be correct. Blood pressure elevated. Heart rate bradycardic which appears to be baseline. Respiratory rate normal. Temperature normal. Oxygen saturation normal. Const General: cooperative and no acute distress Orientation/consciousness: oriented to person, oriented to place, oriented to time and patient oriented x3 Limitations: no limitations [facility] Head: Yes normocephalic and Yes atraumatic Ears: external ears normal General nose exam: Normal external nose present Face and sinus: Yes face symmetric Mouth: oropharynx normal and moist mucous membranes Throat: Yes uvula midline Eyes Pupils: Equal, round and reactive pupils present Neck Neck: Yes normal visual inspection and Yes supple Resp Effort & Inspection: normal respiratory effort and able to speak in complete sentences Auscultation: clear to auscultation bilaterally Cardio Rate: regular rate Rhythm: regular rhythm Heart sounds: S1 normal heart sound present and S2 normal heart sound present GI Inspection: Yes distended Palpation (GI): Soft to palpation, nontender, no guarding and No Rebound tenderness present Auscultation: normoactive bowel sounds General: Yes no CVA tenderness Back/Spine/Pelvis Back: no CVA tenderness Skin General skin exam: elasticity normal and turgor normal Neuro General: oriented to person, oriented to place, oriented to time, patient oriented x3, moves all extremities, no focal motor deficits and CN's II-XI intact bilaterally Cranial nerves: Yes Equal, round and reactive pupils present Cognition (Neuro): normal cognition Extrem General: Yes full ROM, Yes no pedal edema and Yes no calf tenderness Psych Mental Status: mental status grossly normal Affect: normal affect Thought process: Normal thought process present Medical Decision Making Medical Decision Making [facility] Narrative: Patient is a 58-year-old female with history of HTN, sinus bradycardia, major depressive disorder, PTSD presenting to the emergency department with complaint of abdominal pain and bloating worse after eating for the past 2-3 weeks. On exam patient is awake, A+Ox3, BP mildly elevated, HR bradycardic which on review of EMR appears to be patient's baseline, VS otherwise WNL, afebrile, normal neurological exam without focal deficits, physical exam findings as above. Given reported symptoms and physical exam findings, initial differential includes electrolyte abnormality, anemia, orthostatic intolerance, GERD, PUD, UTI. EKG shows sinus bradycardia which appears to be patient's baseline. Labs notable for no leukocytosis, no significant anemia, no significant electrolyte abnormalities. UA positive for 3+ leukocytes, negative nitrates, 21-50 wbc's, 1+ bacteria. Will treat patient for UTI at this time. Instructed patient to keep follow-up appointment with PCP on Thursday. Return precautions discussed at bedside. Patient verbalized understanding of and agreement with plan. Differential Diagnosis Differential Diagnoses: The differential diagnosis associated with the presentation includes As per [facility] Admission/Observation Consideration of admission/observation: Escalation of care including admission/observation considered Lab Data [facility] Lab Attestation statement: I reviewed the patient's lab results. As per [facility] 07/23/23 13:00 07/23/23 13:00 Labs: Lab Results 07/23/23 Range/Units 13:00 WBC 6.9 (4.8-10.8) X10*3/uL RBC 4.38 (4.20-5.50) X10*6/uL Hgb 11.7 L (12.0-16.0) g/dl Hct 37.0 (37.0-47.0) % MCV 84.5 (80.0-98.0) fL MCH 26.7 L (27.0-33.0) pg MCHC 31.6 (31.0-35.0) g/dl RDW 12.4 (11.0-16.0) % Plt Count 190 (160-400) X10*3/uL MPV 10.2 (9.4-12.3) fL Immature Gran % (Auto) 0.4 (0.0-0.4) % Neut % (Auto) 57.5 (45-73) % Lymph % (Auto) 32.9 (20-40) % [place] % (Auto) 7.5 (2-11) % Eos % (Auto) 1.3 (0-4) % Baso % (Auto) 0.4 (0-2) % Lymph # (Auto) 2.3 (1.2-4.9) X10*3/uL [place] # (Auto) 0.5 (0.1-1.2) X10*3/uL Eos # (Auto) 0.1 (0.0-0.4) X10*3/uL Baso # (Auto) 0.0 (0.0-0.2) X10*3/uL Abs Immat Gran (auto) 0.03 (0.00-0.03) X10*3/uL Absolute Neuts (auto) 4.0 (2.0-8.3) x10*3/uL Absolute Nucleated RBC 0.000 (0.0-0.012) X10*3/uL Nucleated RBC % (auto) 0.0 (0.0-0.2) /100WBC Sodium 137 (135-145) mmol/L Potassium 4.5 (3.3-5.1) mmol/L Chloride 102 (96-108) mmol/L Carbon Dioxide 29 (22-29) mmol/L Anion Gap 11 L (12-20) BUN 19 H (9-16) mg/dL Creatinine 0.94 (0.5-1.4) mg/dL Estim Creat Clear Calc 79.1 Estimated GFR > 60 Random Glucose 108 (60-115) mg/dL Calcium 9.1 (8.4-10.2) mg/dL Total Bilirubin 0.3 (0.0-1.0) mg/dL AST 35 H (5-31) U/L ALT 44 H (0-31) U/L Alkaline Phosphatase 62 (39-117) U/L Total Protein 7.0 (6.5-8.0) g/dL Albumin 3.8 (3.5-5.0) g/dL Lipase 12 (8-78) U/L Urine Color Yellow Urine Appearance Clear Urine pH 6.5 (5.0-9.0) Ur Specific [place] 1.010 (1.005-1.025) Urine Protein Negative (Neg-Trace) mg/dL Urine Glucose (UA) Negative (Negative) mg/dL Urine Ketones Negative (Negative) mg/dL Urine Blood Negative (Negative) Urine Nitrite Negative (Negative) Ur Leukocyte Esterase Large (3+) H (Negative) Urine RBC 0-2 (0-2) /HPF Urine WBC 21-50 H (0-5) /HPF Ur Squamous Epith Cells 6-10 (0-2) /HPF Urine Bacteria 1+ (None Seen) Hyaline Casts 0-2 (0-2) /LPF Independent Interpretation I performed an independent interpretation of an: EKG Interpretation: sinus bradycardia, rate 45bpm, normal PT interval, no change from prior External Record Review External record reviewed: Inpatient record, Office record and Outpatient record Prescription Management I considered prescription management with: Antibiotic Discharge Plan Discharge Clinical Impression: Urinary tract infection Patient Disposition: Home, Self-Care Instructions: Urinary Tract Infection in Older Adults (ED) Additional Instructions: You have been evaluated in the emergency department today for your urinary symptoms. Your evaluation, including urinalysis, suggests that your symptoms are due to urinary tract infection. Please take your prescribed antibiotics for the full course of medication as directed. Please follow-up with your primary care provider within 2 days. Return to the emergency department if you experience fevers 100.4? F or greater, worsening or uncontrolled pain, vomiting, flank pain, or for any other concerning symptoms. Prescriptions: New cefuroxime axetil 500 mg tablet 500 mg PO BID Qty: 14 0RF No Action amlodipine 5 mg tablet 5 mg PO DAILY prazosin 5 mg capsule 5 mg PO BEDTIME methadone [Methadone Intensol] 10 mg/mL Concentrate 116 mg PO DAILY clonidine HCl 0.1 mg tablet 0.05 mg PO TID Qty: 1 0RF quetiapine 300 mg Tablet 300 mg PO BEDTIME 30 Days Qty: 30 0RF fluoxetine 20 mg Capsule 60 mg PO DAILY 30 Days Qty: 90 0RF aripiprazole 2 mg tablet 2 mg PO DAILY 30 Days Qty: 30 0RF clonazepam 1 mg tablet 1 mg PO BID PRN (Reason: Anxiety) Qty: 1 0RF
[2023-07-23 13:05] LABS: MANUAL DIFF FLAG NO
[2023-07-23 13:06] LABS: Basophils Percent Auto 0.4 % (0-2); Eosinophils Absolute Auto 0.1 X10*3/uL (0.0-0.4); Eosinophils Percent Auto 1.3 % (0-4); Hemoglobin 11.7 g/dl (12.0-16.0); Imm Gran Abs Auto 0.03 X10*3/uL (0.00-0.03); Imm Gran Pct Auto 0.4 % (0.0-0.4); Lymphocytes Absolute Auto 2.3 X10*3/uL (1.2-4.9); Lymphocytes Percent Auto 32.9 % (20-40); Mean Corpuscular HGB Conc 31.6 g/dl (31.0-35.0); Mean Corpuscular Hemoglobin 26.7 pg (27.0-33.0); Mean Corpuscular Volume 84.5 fL (80.0-98.0); Mean Platelet Volume 10.2 fL (9.4-12.3); Monocytes Absolute Auto 0.5 X10*3/uL (0.1-1.2); Monocytes Percent Auto 7.5 % (2-11); Neutrophils Percent Auto 57.5 % (45-73); Platelet Count 190 X10*3/uL (160-400); Red Blood Count 4.38 X10*6/uL (4.20-5.50); Red Cell Distribution Width 12.4 % (11.0-16.0); White Blood Count 6.9 X10*3/uL (4.8-10.8)
[2023-07-23 13:09] LABS: Appearance Urine Clear; Color Urine Yellow; Glucose Urine UA Negative (Negative); Leukocyte Esterase Urine Large (3+) (Negative); Nitrite Urine Negative (Negative); PH 6.5 (5.0-9.0); UMIC TRIGGER UACC YES; Urine Blood Negative (Negative); Urine Ketones Negative (Negative); Urine Protein Negative (Neg-Trace)
[2023-07-23 13:12] LABS: Bacteria Urine 1+ (None Seen); Hyaline Casts Urine 0-2 /LPF (0-2); RBC Urine 0-2 /HPF (0-2); UACC Culture Trigger YES; WBC Urine 21-50 /HPF (0-5)
[2023-07-23 13:20] LABS: Alanine Aminotransferase 44 U/L (0-31); Albumin Level 3.8 g/dL (3.5-5.0); Alkaline Phosphatase 62 U/L (39-117); Anion Gap 11 (12-20); Aspartate Amino Transferase 35 U/L (5-31); Bilirubin Total 0.3 mg/dL (0.0-1.0); Blood Urea Nitrogen 19 mg/dL (9-16); Calcium 9.1 mg/dL (8.4-10.2); Carbon Dioxide 29 mmol/L (22-29); Chloride 102 mmol/L (96-108); Creatinine Clr Calc Pharmacy 79.1; Estimated Glomerular Filt Rate > 60; Glucose Random 108 mg/dL (60-115); Lipase 12 U/L (8-78); Potassium 4.5 mmol/L (3.3-5.1); Sodium 137 mmol/L (135-145)
== END 2023-07-23 14:19 | disposition home or self-care (01) ==
PROVIDERS: Registered Nurse Emergency; Emergency Provider Emergency Medicine
DX: N39.0 Urinary tract infection, site not specified (principal); R07.89 Other chest pain; R06.02 Shortness of breath; R42 Dizziness and giddiness; R53.83 Other fatigue; F17.210 Nicotine dependence, cigarettes, uncomplicated; Z71.6 Tobacco abuse counseling; Z79.899 Other long term (current) drug therapy
CPT/HCPCS: 36415; 80053; 81001; 83690; 85025; 87086; 93005; 99283

== ENCOUNTER 2023-08-07 12:31 | Emergency (ER) | payer OTHER, SELFPAY ==
--- NOTE | 2023-08-07 12:34 | ED_ITS ---
HPI - General Adult General Chief complaint: Arrhythmia/Palpitations Stated complaint: SOB Dizziness [place] Time Seen by Provider: 08/07/23 15:26 Related Data Home Medications Medication Instructions Recorded Confirmed amlodipine 5 mg tablet 5 mg PO DAILY 12/24/22 12/24/22 prazosin 5 mg capsule 5 mg PO BEDTIME 12/24/22 12/24/22 methadone 10 mg/mL oral 116 mg PO DAILY 12/25/22 12/25/22 concentrate (Methadone Intensol) Previous Rx's Medication Instructions Recorded aripiprazole 2 mg tablet 2 mg PO DAILY 30 days #30 tabs 01/06/23 clonazepam 1 mg tablet 1 mg PO BID PRN Anxiety #1 tab 01/06/23 clonidine HCl 0.1 mg tablet 0.05 mg (1/2 x 0.1 mg) PO TID #1 01/06/23 tab fluoxetine 20 mg capsule 60 mg (3 x 20 mg) PO DAILY 30 days 01/06/23 #90 caps quetiapine 300 mg tablet 300 mg PO BEDTIME 30 days #30 tabs 01/06/23 cefuroxime axetil 500 mg tablet 500 mg PO BID #14 tabs 07/23/23 Allergies Allergy/AdvReac Type Severity Reaction Status Date / Time No Known Allergies Allergy Verified 12/24/22 23:16 [facility] Past Medical History Medical History (Updated 08/07/23 @ 15:25 by MORE Diaz) Essential hypertension Major depressive disorder, recurrent Social History Social History Household Members: Family Housing: House Do you presently have visiting nurse or other home services: No Alcohol intake: former Patient Tobacco Use Status: Current everyday Tobacco user Tobacco use type: Cigarette Cigarette Packs Per Day: 0.25 Cigarettes Per Day: 5.0 e-Cigarette/Vaping Use: Never Used Second Hand Smoke Exposure: Yes service: No Sexual orientation: Straight/Heterosexual Physical Exam ED Vital Signs: Vital Signs - 24 hr 08/07/23 12:35 Temperature 98.2 F Pulse Rate 47 L Respiratory Rate 20 Blood Pressure 134/68 Pulse Oximetry 97 Oxygen Delivery Method Room Air BMI result Body Mass Index 38.4 Course Course Course Narrative: This is an RME: Additional HPI, ROS, PE not included below will be deferred to primary provider. This is a [id number], history of opioid use disorder on methadone, HTN, sinus bradycardia, major depressive disorder, PTSD, presenting to the ER with complaints of lightheadedness, heart palpitations, and dizziness x 1.5 weeks. States that she was seen on 07/23/2023 for UTI. She states that she followed up with her PCP and was going to get an echocardiogram. Endorsing some abdominal pain and nausea. Bradycardic at 48bpm. Was bradycardic at last visit. Plan: Labs, EKG, cxr Reevaluation(s) Reevaluation #1: Patient approached the triage desk requesting to be discharged. I discussed with her that her workup is not complete needs to be fully evaluated by medical provider in the main emergency department. She becomes tearful and states that she can all longer stay here and would like to be discharged. I informed her that this is leaving against medical advice and there are life-threatening consequences if she does leave. She understands these risks and demands to be discharged. AMA paperwork filed. Time: 15:25 Medical Decision Making Lab Data 08/07/23 12:58 08/07/23 12:58 Labs: Lab Results 08/07/23 Range/Units 12:58 WBC 6.2 (4.8-10.8) X10*3/uL RBC 4.47 (4.20-5.50) X10*6/uL Hgb 11.7 L (12.0-16.0) g/dl Hct 37.0 (37.0-47.0) % MCV 82.8 (80.0-98.0) fL MCH 26.2 L (27.0-33.0) pg MCHC 31.6 (31.0-35.0) g/dl RDW 12.6 (11.0-16.0) % Plt Count 173 (160-400) X10*3/uL MPV 10.5 (9.4-12.3) fL Immature Gran % (Auto) 0.3 (0.0-0.4) % Neut % (Auto) 50.1 (45-73) % Lymph % (Auto) 40.2 H (20-40) % [place] % (Auto) 7.4 (2-11) % Eos % (Auto) 1.5 (0-4) % Baso % (Auto) 0.5 (0-2) % Lymph # (Auto) 2.5 (1.2-4.9) X10*3/uL [place] # (Auto) 0.5 (0.1-1.2) X10*3/uL Eos # (Auto) 0.1 (0.0-0.4) X10*3/uL Baso # (Auto) 0.0 (0.0-0.2) X10*3/uL Abs Immat Gran (auto) 0.02 (0.00-0.03) X10*3/uL Absolute Neuts (auto) 3.1 (2.0-8.3) x10*3/uL Absolute Nucleated RBC 0.000 (0.0-0.012) X10*3/uL Nucleated RBC % (auto) 0.0 (0.0-0.2) /100WBC Sodium 137 (135-145) mmol/L Potassium 4.6 (3.3-5.1) mmol/L Chloride 102 (96-108) mmol/L Carbon Dioxide 28 (22-29) mmol/L Anion Gap 12 (12-20) BUN 22 H (9-16) mg/dL Creatinine 0.92 (0.5-1.4) mg/dL Estim Creat Clear Calc 83.6 Estimated GFR > 60 Random Glucose 98 (60-115) mg/dL Calcium 9.1 (8.4-10.2) mg/dL Magnesium 2.2 (1.6-2.6) mg/dL Total Bilirubin 0.3 (0.0-1.0) mg/dL Direct Bilirubin 0.3 (0.0-0.5) mg/dL AST 47 H (5-31) U/L ALT 59 H (0-31) U/L Alkaline Phosphatase 61 (39-117) U/L Troponin I High Sens < 2.7 (<3.5-17.0) ng/L Total Protein 7.3 (6.5-8.0) g/dL Albumin 3.9 (3.5-5.0) g/dL Lipase 11 (8-78) U/L Discharge Plan Discharge Clinical Impression: Dizziness Patient Disposition: Left Against Medical Advice Additional Instructions: You did not complete treatment in the emergency department as you were not fully evaluated. Your requested to be discharged home prior to completing full evaluation. Your informed that this can have life consequences. You understand the risk of leaving the ER without being evaluated. I encourage you to follow-up with your primary care physician. If any new or worsening symptoms, please return for re-evaluation. Prescriptions: No Action cefuroxime axetil 500 mg tablet 500 mg PO BID Qty: 14 0RF amlodipine 5 mg tablet 5 mg PO DAILY prazosin 5 mg capsule 5 mg PO BEDTIME methadone [Methadone Intensol] 10 mg/mL Concentrate 116 mg PO DAILY clonidine HCl 0.1 mg tablet 0.05 mg PO TID Qty: 1 0RF quetiapine 300 mg Tablet 300 mg PO BEDTIME 30 Days Qty: 30 0RF fluoxetine 20 mg Capsule 60 mg PO DAILY 30 Days Qty: 90 0RF aripiprazole 2 mg tablet 2 mg PO DAILY 30 Days Qty: 30 0RF clonazepam 1 mg tablet 1 mg PO BID PRN (Reason: Anxiety) Qty: 1 0RF
[2023-08-07 12:35] VITALS: BP 134/68; PULSE 47; RESP 20; TEMP 36.8; O2SAT 97; BMI 38.4
--- NOTE | 2023-08-07 12:38 | ECG_ITS ---
Test Reason : PALPITATIONS Blood Pressure : / mmHG Vent. Rate : 042 BPM Atrial Rate : 042 BPM P-R Int : 198 ms QRS Dur : 090 ms QT Int : 528 ms P-R-T Axes : 035 010 025 degrees QTc Int : 440 ms Marked sinus bradycardia Abnormal ECG When compared with ECG of 23-JUL-2023 12:21, No significant change was found Referred By: Trinidad Moses Electronically Signed By:JUANA BOLANOS MD
[2023-08-07 13:04] LABS: MANUAL DIFF FLAG NO
[2023-08-07 13:07] LABS: Basophils Percent Auto 0.5 % (0-2); Eosinophils Absolute Auto 0.1 X10*3/uL (0.0-0.4); Eosinophils Percent Auto 1.5 % (0-4); Hemoglobin 11.7 g/dl (12.0-16.0); Imm Gran Abs Auto 0.02 X10*3/uL (0.00-0.03); Imm Gran Pct Auto 0.3 % (0.0-0.4); Lymphocytes Absolute Auto 2.5 X10*3/uL (1.2-4.9); Lymphocytes Percent Auto 40.2 % (20-40); Mean Corpuscular HGB Conc 31.6 g/dl (31.0-35.0); Mean Corpuscular Hemoglobin 26.2 pg (27.0-33.0); Mean Corpuscular Volume 82.8 fL (80.0-98.0); Mean Platelet Volume 10.5 fL (9.4-12.3); Monocytes Absolute Auto 0.5 X10*3/uL (0.1-1.2); Monocytes Percent Auto 7.4 % (2-11); Neutrophils Absolute Auto 3.1 x10*3/uL (2.0-8.3); Neutrophils Percent Auto 50.1 % (45-73); Platelet Count 173 X10*3/uL (160-400); Red Blood Count 4.47 X10*6/uL (4.20-5.50); Red Cell Distribution Width 12.6 % (11.0-16.0); White Blood Count 6.2 X10*3/uL (4.8-10.8)
[2023-08-07 13:30] LABS: Alanine Aminotransferase 59 U/L (0-31); Albumin Level 3.9 g/dL (3.5-5.0); Alkaline Phosphatase 61 U/L (39-117); Anion Gap 12 (12-20); Aspartate Amino Transferase 47 U/L (5-31); Bilirubin Direct 0.3 mg/dL (0.0-0.5); Bilirubin Total 0.3 mg/dL (0.0-1.0); Blood Urea Nitrogen 22 mg/dL (9-16); Calcium 9.1 mg/dL (8.4-10.2); Carbon Dioxide 28 mmol/L (22-29); Chloride 102 mmol/L (96-108); Creatinine Clr Calc Pharmacy 83.6; Estimated Glomerular Filt Rate > 60; Glucose Random 98 mg/dL (60-115); Lipase 11 U/L (8-78); Magnesium 2.2 mg/dL (1.6-2.6); Potassium 4.6 mmol/L (3.3-5.1); Sodium 137 mmol/L (135-145); Total Protein 7.3 g/dL (6.5-8.0)
[2023-08-07 13:47] LABS: Troponin-I High Sensitivity < 2.7 ng/L (<3.5-17.0)
--- NOTE | 2023-08-07 15:24 | PC.NURSE ---
PT CAME UP TO TRIAGE DOOR IN TEARS STATING THAT SHE CANNOT SIT IN THE WAITING ROOM ANY LONGER BECAUSE SHE WILL LOOSE HER PLACEMENT AT RESPITE AND SHE NEEDS TO TAKE HER MEDS. PROVIDER TUSHAR (FAIZA) AWARE AND PT ADAMANTLY STATES THAT SHE WILL LEAVE AMA. PT ENCOURAGED TO STAY FOR MEDICAL ASSESS/EVAL.
== END 2023-08-07 15:47 | disposition left against medical advice (07) ==
PROVIDERS: Physician Assistant Medical; Emergency Provider Emergency Medicine; PCP Internal Medicine
DX: R06.02 Shortness of breath (principal); R42 Dizziness and giddiness; R00.1 Bradycardia, unspecified; R00.2 Palpitations; F17.210 Nicotine dependence, cigarettes, uncomplicated; Z71.6 Tobacco abuse counseling; Z79.899 Other long term (current) drug therapy
CPT/HCPCS: 36415; 80048; 80076; 83690; 83735; 84484; 85025; 93005; 99283